=== PATIENT | female | born 1950 | race Hispanic/Latino ===

== ENCOUNTER → 2017-09-03 | Outpatient (CLI) | payer MEDICARE ==
[~2017-09-03] MED LIST: ALBU8.5H8 IH; ATOR40TA69 PO; BISO1TAB31 PO; ESOM20CA31 PO; LEVO75 PO; LOSA50TA37 PO; SERT100T PO
== END | disposition home or self-care (01) ==
LOC: RAH 12:56
PROVIDERS: ATTEND Physician Assistant
DX: Z12.31 Encounter for screening mammogram for malignant neoplasm of breast (principal)
CPT/HCPCS: 77067

== ENCOUNTER → 2017-09-27 | Outpatient (CLI) | payer MEDICARE | END | disposition home or self-care (01) | LOC: RAH 14:03 | PROVIDERS: ATTEND Physician Assistant | DX: M48.061 Spinal stenosis, lumbar region without neurogenic claudication (principal); M43.16 Spondylolisthesis, lumbar region; M51.36 Other intervertebral disc degeneration, lumbar region | CPT/HCPCS: 72110; 72148 ==

== ENCOUNTER → 2017-11-16 | Outpatient (CLI) | payer MEDICARE | END | disposition home or self-care (01) | LOC: LAB 15:12 | PROVIDERS: ATTEND Physician Assistant | DX: E03.9 Hypothyroidism, unspecified (principal) | CPT/HCPCS: 36415; 84443 ==

== ENCOUNTER → 2017-12-07 | Outpatient (CLI) | payer MEDICARE | END | disposition home or self-care (01) | LOC: RAH 12:54 | PROVIDERS: ATTEND Otolaryngology | DX: J32.2 Chronic ethmoidal sinusitis (principal) | CPT/HCPCS: 70486 ==

== ENCOUNTER → 2018-03-04 | Outpatient (CLI) | payer MEDICARE ==
[~2018-03-04] MED LIST changes: +LOSA50TA25 PO; -LOSA50TA37 PO
[2018-03-04 14:58] LABS: CREATININE 0.8 mg/dL (0.5-1.5)
== END | disposition home or self-care (01) ==
LOC: LAB 14:20
PROVIDERS: ATTEND Neurological Surgery
DX: M54.2 Cervicalgia (principal); R51 Headache
CPT/HCPCS: 36415; 82565; 84520

== ENCOUNTER 2018-03-14 08:50 | Emergency (ER) | payer MEDICARE | END 2018-03-14 10:31 | disposition home or self-care (01) | LOC: EDH 08:50 | DX: M43.6 Torticollis (principal); E78.5 Hyperlipidemia, unspecified; I10 Essential (primary) hypertension; Z88.8 Allergy status to other drugs, medicaments and biological substances; Z98.890 Other specified postprocedural states | CPT/HCPCS: 72040 ==

== ENCOUNTER 2018-04-08 12:54 | Emergency (ER) | payer MEDICARE ==
[2018-04-08 14:02] LABS: CREATININE 0.7 mg/dL (0.5-1.5); POTASSIUM 3.8 mmol/L (3.5-5.1)
[2018-04-08 14:07] LABS: ALBUMIN 3.6 g/dL (3.5-5.0); BILIRUBIN,TOTAL 0.7 mg/dL (0.2-1.0); TOTAL PROTEIN, SERUM 7.6 g/dL (6.0-8.3)
[2018-04-08 14:08] LABS: APPEARANCE,URINE Clear (CLEAR); BILIRUBIN,URINE Negative (NEGATIVE); COLOR,URINE Yellow (YELLOW); GLUCOSE, URINE (UA) Negative (NEGATIVE); KETONES,URINE Negative (NEGATIVE); LEUKOCYTE ESTERASE ,URINE Small (NEGATIVE); NITRATE,URINE Negative (NEGATIVE); OCCULT BLOOD,URINE Nonhemolyzed Trace (NEGATIVE); PROTEIN,URINE Negative (NEGATIVE)
[2018-04-08 14:17] LABS: AMPHET/METH SCREEN,URINE NEGATIVE (NEGATIVE); BARBITURATE SCREEN, URINE NEGATIVE (NEGATIVE); BENZODIAZEPINES SCREEN,URINE NEGATIVE (NEGATIVE); CANNABINOID SCREEN,URINE NEGATIVE (NEGATIVE); COCAINE SCREEN,URINE NEGATIVE (NEGATIVE); OPIATE SCREEN,URINE NEGATIVE (NEGATIVE); PHENCYCLIDINE SCREEN,URINE NEGATIVE (NEGATIVE)
[2018-04-08 14:31] LABS: RBC,URINE 0-1 /HPF (0-1)
[2018-04-08 14:32] LABS: BACTERIA,URINE Rare /HPF (None Seen)
[2018-04-08 14:33] LABS: SQUAMOUS EPITHELIAL CELL,UR 30-50 /HPF (0-2)
[2018-04-08 14:44] LABS: EOSINOPHILS % (AUTO) 1.6 % (0.0-8.0); HEMATOCRIT 38.4 % (36-48); LYMPHOCYTES % (AUTO) 33.3 % (21.0-51.0); MEAN CORPUSCULAR HEMOGLOBIN 30.2 pg (27.0-33.0); MEAN CORPUSCULAR HGB CONC 32.9 g/dL (32.0-36.0); MEAN CORPUSCULAR VOLUME 91.7 fL (79-99); MONOCYTES % (AUTO) 7.1 % (3.0-13.0); NUCLEATED RED BLOOD CELLS 0.1 % (0.0-0.19); PLATELET COUNT (AUTO) 217 K/uL (130-400); RED BLOOD CELL COUNT(AUTO) 4.19 MIL/uL (4.00-5.50); RED CELL DISTRIBUTION WIDTH 15.1 % (11.0-15.5); WHITE BLOOD COUNT (AUTO) 5.6 K/uL (4.8-10.8)
== END 2018-04-08 15:13 | disposition home or self-care (01) ==
LOC: EDH 12:54
DX: M54.5 Low back pain (principal); E78.5 Hyperlipidemia, unspecified; I10 Essential (primary) hypertension; J45.909 Unspecified asthma, uncomplicated; E07.9 Disorder of thyroid, unspecified; F32.9 Major depressive disorder, single episode, unspecified; Z98.890 Other specified postprocedural states; Z88.8 Allergy status to other drugs, medicaments and biological substances; Z91.011 Allergy to milk products
CPT/HCPCS: 36415; 72100; 80053; 80305; 81001; 82150; 82550; 83690; 84484; 85025; 93005

== ENCOUNTER → 2018-04-19 | Outpatient (CLI) | payer MEDICARE ==
[~2018-04-19] MED LIST changes: +GADODIAMIDE 10 MMOL/20 ML ML IV ONE
== END | disposition home or self-care (01) ==
LOC: RAH 15:55
PROVIDERS: ATTEND Neurological Surgery
DX: G31.9 Degenerative disease of nervous system, unspecified (principal)
CPT/HCPCS: 70551; A9579

== ENCOUNTER → 2018-07-25 | Outpatient (CLI) | payer MEDICARE ==
[~2018-07-25] MED LIST changes: -GADODIAMIDE 10 MMOL/20 ML ML IV ONE; -LOSA50TA25 PO; +LOSA50TA64 PO
== END | disposition home or self-care (01) ==
LOC: RAH 15:47
PROVIDERS: ATTEND Allergy & Immunology
DX: I51.7 Cardiomegaly (principal)
CPT/HCPCS: 71045

== ENCOUNTER 2018-07-27 22:02 | Emergency (ER) | payer MEDICARE ==
[2018-07-27] MEDS ORDERED: SODIUM CHLORIDE 0.9% 1000ML 1,000 ML IV ONE (22:45)
[2018-07-27] MEDS ORDERED: DEXAMETHASONE SOD PHOSPHATE 10MG/ML 1ML VIAL ONE (22:45)
[2018-07-27] MEDS ORDERED: CEFTRIAXONE SODIUM 1 GM ONE (22:45)
[2018-07-27] MEDS ORDERED: IPRATROPIUM/ALBUTEROL SULFATE 3 ML SOLUTION IH ONE (22:50)
[2018-07-27 23:06] LABS: RAPID GROUP A STREP NEGATIVE (NEGATIVE)
== END 2018-07-28 01:39 | disposition home or self-care (01) ==
LOC: EDH 22:02
DX: J20.9 Acute bronchitis, unspecified (principal); I10 Essential (primary) hypertension; J45.909 Unspecified asthma, uncomplicated; E78.5 Hyperlipidemia, unspecified; E07.9 Disorder of thyroid, unspecified; F32.9 Major depressive disorder, single episode, unspecified; Z98.890 Other specified postprocedural states; Z91.041 Radiographic dye allergy status; Z91.011 Allergy to milk products
CPT/HCPCS: 71046; 87804 ×2; 87880; 93005; 94640; 96374; 96375; 99284; A4218; J0696; J1100; J7030

== ENCOUNTER → 2018-09-19 | Outpatient (CLI) | payer MEDICARE | END | disposition home or self-care (01) | LOC: LAB 14:34 | PROVIDERS: ATTEND Physician Assistant | DX: E03.9 Hypothyroidism, unspecified (principal) | CPT/HCPCS: 36415; 84443 ==

== ENCOUNTER 2018-10-02 20:00 | Emergency (ER) | payer MEDICARE ==
[2018-10-02] MEDS ORDERED: DEXAMETHASONE SOD PHOSPHATE 10MG/ML 1ML VIAL ONE (20:16)
[2018-10-02] MEDS ORDERED: AZITHROMYCIN 250 MG TABLET PO ONE (22:49)
== END 2018-10-02 22:58 | disposition home or self-care (01) ==
LOC: EDH 20:00
DX: J45.21 Mild intermittent asthma with (acute) exacerbation (principal); R60.0 Localized edema; I10 Essential (primary) hypertension; E07.9 Disorder of thyroid, unspecified; Z91.041 Radiographic dye allergy status; Z91.011 Allergy to milk products; Z87.891 Personal history of nicotine dependence; Z98.890 Other specified postprocedural states
CPT/HCPCS: 71046; 87804 ×2; 93970; 96372; 99285; J1100

== ENCOUNTER → 2018-11-09 | Outpatient (CLI) | payer MEDICARE ==
[2018-11-09 14:20] LABS: CREATININE 0.7 mg/dL (0.5-1.5)
== END | disposition home or self-care (01) ==
LOC: LAB 13:23
PROVIDERS: ATTEND Neurological Surgery
DX: M47.812 Spondylosis without myelopathy or radiculopathy, cervical region (principal)
CPT/HCPCS: 36415; 82565; 84520

== ENCOUNTER → 2018-12-13 | Outpatient (CLI) | payer MEDICARE | END | disposition home or self-care (01) | LOC: RAH 10:32 | PROVIDERS: ATTEND Neurological Surgery | DX: M54.81 Occipital neuralgia (principal) | CPT/HCPCS: 70551 ==

== ENCOUNTER → 2019-01-25 | Outpatient (CLI) | payer MEDICARE | END | disposition home or self-care (01) | LOC: RAH 13:52 | PROVIDERS: ATTEND Orthopaedic Surgery | DX: M19.011 Primary osteoarthritis, right shoulder (principal); M25.711 Osteophyte, right shoulder | CPT/HCPCS: 73221 ==

== ENCOUNTER 2019-02-06 08:54 | Emergency (ER) | payer MEDICARE ==
[2019-02-06 09:19] LABS: BASOPHILS % (AUTO) 0.9 % (0.0-5.0); EOSINOPHILS % (AUTO) 2.2 % (0.0-8.0); HEMATOCRIT 37.1 % (36-48); LYMPHOCYTES % (AUTO) 36.8 % (21.0-51.0); MEAN CORPUSCULAR HEMOGLOBIN 30.2 pg (27.0-33.0); MEAN CORPUSCULAR HGB CONC 33.1 g/dL (32.0-36.0); MEAN CORPUSCULAR VOLUME 91.4 fL (79-99); MONOCYTES % (AUTO) 7.7 % (3.0-13.0); NEUTROPHILS % (AUTO) 52.4 % (40.0-77.0); PLATELET COUNT (AUTO) 209 K/uL (130-400); RED BLOOD CELL COUNT(AUTO) 4.06 MIL/uL (4.00-5.50); RED CELL DISTRIBUTION WIDTH 14.8 % (11.0-15.5); WHITE BLOOD COUNT (AUTO) 6.4 K/uL (4.8-10.8)
[2019-02-06 09:27] LABS: CREATININE 0.7 mg/dL (0.5-1.5); POTASSIUM 3.2 mmol/L (3.5-5.1)
[2019-02-06 09:32] LABS: ALBUMIN 3.6 g/dL (3.5-5.0); BILIRUBIN,TOTAL 0.6 mg/dL (0.2-1.0); TOTAL PROTEIN, SERUM 7.2 g/dL (6.0-8.3)
[2019-02-06 09:38] LABS: CREATINE KINASE, TOTAL 165 U/L (21-232); MYOGLOBIN 61 ng/mL (10-92); TROPONIN I < 0.04 ng/mL (0.00-0.06)
== END 2019-02-06 12:31 | disposition home or self-care (01) ==
LOC: EDH 08:54
DX: J20.9 Acute bronchitis, unspecified (principal); J81.0 Acute pulmonary edema; R07.89 Other chest pain; J45.909 Unspecified asthma, uncomplicated; I10 Essential (primary) hypertension; E78.5 Hyperlipidemia, unspecified; F32.9 Major depressive disorder, single episode, unspecified; E07.9 Disorder of thyroid, unspecified; Z91.041 Radiographic dye allergy status
CPT/HCPCS: 36415; 71045; 80053; 82550; 83874; 83880; 84484; 85025; 93005

== ENCOUNTER → 2019-03-17 | Outpatient (CLI) | payer MEDICARE ==
[~2019-03-17] MED LIST changes: +ALBU0.63 IH; +FLUT8AER2 IH; +ROSU20TA23 PO; +THYROXINE PO
[2019-03-17 13:53] LABS: BASOPHILS % (AUTO) 0.7 % (0.0-5.0); EOSINOPHILS % (AUTO) 1.6 % (0.0-8.0); HEMATOCRIT 37.6 % (36-48); LYMPHOCYTES % (AUTO) 28.1 % (21.0-51.0); MEAN CORPUSCULAR HEMOGLOBIN 31.3 pg (27.0-33.0); MEAN CORPUSCULAR HGB CONC 33.6 g/dL (32.0-36.0); MEAN CORPUSCULAR VOLUME 93.2 fL (79-99); MONOCYTES % (AUTO) 7.1 % (3.0-13.0); NEUTROPHILS % (AUTO) 62.5 % (40.0-77.0); PLATELET COUNT (AUTO) 232 K/uL (130-400); RED BLOOD CELL COUNT(AUTO) 4.04 MIL/uL (4.00-5.50); RED CELL DISTRIBUTION WIDTH 15.1 % (11.0-15.5); WHITE BLOOD COUNT (AUTO) 6.4 K/uL (4.8-10.8)
[2019-03-17 14:03] LABS: APPEARANCE,URINE Clear (CLEAR); BILIRUBIN,URINE Negative (NEGATIVE); COLOR,URINE Yellow (YELLOW); GLUCOSE, URINE (UA) Negative (NEGATIVE); KETONES,URINE Negative (NEGATIVE); LEUKOCYTE ESTERASE ,URINE Small (NEGATIVE); NITRATE,URINE Negative (NEGATIVE); OCCULT BLOOD,URINE Small (NEGATIVE); PROTEIN,URINE Negative (NEGATIVE)
[2019-03-17 14:14] LABS: ALBUMIN 3.5 g/dL (3.5-5.0); BILIRUBIN,TOTAL 0.8 mg/dL (0.2-1.0); CREATININE 0.7 mg/dL (0.5-1.5); POTASSIUM 3.2 mmol/L (3.5-5.1); T4 (THYROXINE) 10.6 ug/dL (4.7-13.3); THYROID STIMULATING HORMONE 7.05 uIU/mL (0.36-3.74); TOTAL PROTEIN, SERUM 7.2 g/dL (6.0-8.3); URIC ACID 3.5 mg/dL (2.6-7.2)
[2019-03-17 14:22] LABS: BACTERIA,URINE Rare /HPF (None Seen); RBC,URINE 0-1 /HPF (0-1); SQUAMOUS EPITHELIAL CELL,UR Rare /HPF (0-2); WBC,URINE 0-1 /HPF (0-1)
[2019-03-17 15:13] LABS: ERYTHROCYTE SEDIMENTATION RATE 40 MM/HR (0-30)
== END | disposition home or self-care (01) ==
LOC: LAB 12:25
PROVIDERS: ATTEND Internal Medicine
DX: E78.00 Pure hypercholesterolemia, unspecified (principal); I10 Essential (primary) hypertension; E03.9 Hypothyroidism, unspecified
CPT/HCPCS: 36415; 80053; 80061; 81001; 84436; 84443; 84479; 84550; 85025; 85651

== ENCOUNTER 2019-03-22 10:16 | Day surgery (SDC) | payer MEDICARE ==
[2019-03-20 12:51] VITALS: BP 146/68
--- NOTE | 2019-03-20 13:37 | NUR ---
REFUSAL OF BLOOD INFORMED DR. LORETA GAONA ASST OF PT BLOOD REFUSAL. SHE WILL INFORM DR. RACHEL.
[2019-03-20 13:43] LABS: INR 0.89 (0.85-1.15); PARTIAL THROMBOPLASTIN TIME 24.6 SEC (26.3-35.5); PROTHROMBIN TIME 9.4 SEC (9.6-11.6)
[2019-03-20 13:47] LABS: CREATININE 0.7 mg/dL (0.5-1.5); POTASSIUM 3.3 mmol/L (3.5-5.1)
--- NOTE | 2019-03-20 17:24 | NUR ---
PER DR. RACHEL, AWARE OF BLOOD REFUSAL, NO NEW ORDERS, OK TO PROCEED, INFORMED BY MARIA D, [facility] OFFICE.
--- NOTE | 2019-03-21 15:44 | NUR ---
NURSING: NOTIFIED RAMIRO CURRIE, FOR DR. RACHEL PT POTASSIUM IS LOW 3.2, NEW ORDER TO REDRAW K+ IN THE MORNING. REPORTED ABNORMAL CXR, NO NEW ORDERS OK TO PROCEED.
[~2019-03-22] VITALS: Ht 154.9 cm; Wt 91.6 kg
[2019-03-22] VITALS (8 sets, daily range): BP systolic 124–147; BP diastolic 73–96
[~2019-03-22 10:16] MED LIST changes: -LEVO75 PO; +METHYLPREDNISOLONE SOD SUCC 125MG/2ML VIAL IVP SCH; +SODIUM CHLORIDE 0.9% 500ML 500 ML IV SCH
--- NOTE | 2019-03-22 10:45 | NUR ---
PATIENT ARRIVED PATIENT ARRIVED TO DAY PATIENT ACCOMPANIED BY SPOUSE (OSCAR). PATIENT AAOX3, RESPIRATIONS UNLABORED, VITAL SIGNS STABLE,PATIENT DENIES ANY PAIN AT THIS TIME. PROCEDURE VERIFIED AND CONFIRMED WITH PATIENT. HOSPITAL ROUTINE EXPLAINED TO PATIENT AND SPOUSE, BOTH VERBALIZED UNDERSTANDING. ALL QUESTIONS/CONCERNS ADDRESSED. SIDE RAILS UP X2, BED IN LOWEST POSITION, CALL CARR IN REACH.
[2019-03-22] MEDS ORDERED: SODIUM CHLORIDE 0.9% 1000ML 1,000 ML IV ONE (13:51)
[2019-03-22] MEDS ORDERED: NICARDIPINE HCL 25 MG/10 ML ML IV ONE (14:43)
[2019-03-22] MEDS ORDERED: LIDOCAINE HCL 2% 20ML ONE (15:02)
[2019-03-22] MEDS ORDERED: HEPARIN SODIUM 1000UNIT/ML 10ML VIAL ONE (15:02)
[2019-03-22] MEDS ORDERED: IOHEXOL 350 MG/ML 100ML INFUS..BTL IV ONE (15:02)
[2019-03-22] MEDS ORDERED: IOHEXOL-350 50ML VIAL IV ONE ×2 (15:02→16:07)
[2019-03-22] MEDS ORDERED: NITROGLYCERIN 5 MG/ML 10 ML VIAL IV ONE (15:03)
--- NOTE | 2019-03-22 15:10 | NUR ---
PATIENT TRANSFERRED PATIENT TAKEN TO HEALTH MANAGER VIA BED BY DAVIS CLEMENT. FAMILY INSTRUCTED TO WAIT IN ROOM IN ORDER TO SPEAK WITH MD FOLLOWING PROCEDURE.
[2019-03-22] MEDS ORDERED: FENTANYL CITRATE PF 50 MCG/1 ML 2ML VIAL ONE (15:32)
[2019-03-22] MEDS ORDERED: MIDAZOLAM HCL 1 MG/ML 2ML VIAL ONE (15:32)
[2019-03-22] MEDS ORDERED: SODIUM CHLORIDE 0.9% 1000ML 1,000 ML IV SCH (16:21)
[2019-03-22] MEDS ORDERED: GLUCAGON 1MG KIT 1 MG ML IM PRN (16:30)
[2019-03-22] MEDS ORDERED: DEXTROSE 50%-WATER 50 ML DISP.SYRIN IV PRN (16:30)
--- NOTE | 2019-03-22 16:50 | NUR ---
PATIENT RETURNED PATIENT BROUGHT BACK FROM APPRENTICE PLANT ATTENDANT VIA BED BY DAVIS MCCLURE. PT AAOX3 ,RESPIRATIONS UNLABORED, VITAL SIGNS STABLE. PATIENT DENIES ANY PAIN AT THIS TIME. TR BAND IN PLACE TO RIGHT WRIST, NO HEMATOMA OR OOZING NOTED FROM THE SITE. RADIAL PULSES STRONG BILATERALLY. PATIENT INSTRUCTED TO KEEP RIGHT WRIST STRAIGHT AND AVOID USING RIGHT ARM/HAND, PT VERBALIZED UNDERSTANDING. SPOUSE AT BEDSIDE.
--- NOTE | 2019-03-22 17:10 | NUR ---
AIR REMOVED FROM TR BAND 2ML AIR REMOVED FROM TRBAND USING SYRINGE. PATIENT TOLERATED WELL, NO BLEEDING OR OOZING NOTED. RADIAL PULSES STRONG BILATERALLY.
--- NOTE | 2019-03-22 17:21 | NUR ---
DISCHARGE INSTRUCTIONS DISCHARGE INSTRUCTIONS PROVIDED TO PATIENT'S SPOUSE (OSCAR). INSTRUCTIONS ON RADIAL SITE CARE, ANGIOGRAM AFTER CARE, AND HAND WASHING PROVIDED AND EXPLAINED TO PATIENT'S SPOUSE. ALL QUESTIONS/CONCERNS ADDRESSED AND PATIENT'S SPOUSE VERBALIZED UNDERSTANDING OF INSTRUCTIONS.
--- NOTE | 2019-03-22 17:25 | NUR ---
TR BAND BLEEDING NOTED FROM RADIAL PUNCTURE SITE, 4ML OF AIR INSERTED INTO TRBAND. RADIAL SITE NO LONGER BLEEDING, HEMOSTASIS RESTORED. WILL CONTINUE TO MONITOR AND BEGIN REMOVING AIR IN 30MINS.
--- NOTE | 2019-03-22 17:55 | NUR ---
AIR REMOVED FROM TR BAND 2ML AIR REMOVED FROM TRBAND USING SYRINGE. PATIENT TOLERATED WELL, NO BLEEDING OR OOZING NOTED. RADIAL PULSES STRONG BILATERALLY. WILL CONTINUE TO MONITOR FOR BLEEDING AT SITE.
--- NOTE | 2019-03-22 20:00 | NUR ---
AIR REMOVED FROM TR BAND 2ML AIR REMOVED FROM TRBAND USING SYRINGE, NO MORE AIR LEFT IN TR BAND. TR BAND REMOVED AND PUNCTURE SITE COVERED WITH STERILE BANDAID. PATIENT TOLERATED WELL, NO BLEEDING OR OOZING NOTED. RADIAL PULSES STRONG BILATERALLY. WILL CONTINUE TO MONITOR FOR BLEEDING AT SITE.
--- NOTE | 2019-03-22 20:30 | NUR ---
RADIAL PUNCTURE SITE IS DRY, NO OOZING OR BLEEDING NOTED. BANDAID IS DRY AND INTACT.
--- NOTE | 2019-03-22 20:37 | NUR ---
patient discharged from facility via wheelchair by tom fuentes rn. patient assisted into private vehicle driven by spouse
== END 2019-03-22 20:37 | disposition home or self-care (01) ==
LOC: DAH 10:16
PROVIDERS: ATTEND Internal Medicine Cardiovascular Disease
DX: R94.39 Abnormal result of other cardiovascular function study (principal); I25.118 Atherosclerotic heart disease of native coronary artery with other forms of angina pectoris; I10 Essential (primary) hypertension; F41.9 Anxiety disorder, unspecified; M19.90 Unspecified osteoarthritis, unspecified site; E78.5 Hyperlipidemia, unspecified; Z88.3 Allergy status to other anti-infective agents; Z91.018 Allergy to other foods; Z96.653 Presence of artificial knee joint, bilateral; Z79.899 Other long term (current) drug therapy; Z98.890 Other specified postprocedural states; Z90.710 Acquired absence of both cervix and uterus; Z82.49 Family history of ischemic heart disease and other diseases of the circulatory system
CPT/HCPCS: 36415 ×2; 71045; 80048; 84132; 85610; 85730; 93005; 93454; 93567; A4215; A4216; A4221; A4222; A4223 ×3; A4606; C1769 ×3; C1894; J1644; J2250; J2930; J3010; J3490 ×3; J7030; Q9965; Q9967 ×3; 99156; 99157

== ENCOUNTER → 2019-03-27 | Outpatient (CLI) | payer MEDICARE ==
[~2019-03-27] MED LIST changes: -ATOR40TA69 PO; -ESOM20CA31 PO; -METHYLPREDNISOLONE SOD SUCC 125MG/2ML VIAL IVP SCH; -SODIUM CHLORIDE 0.9% 500ML 500 ML IV SCH
== END | disposition home or self-care (01) ==
LOC: RAH 11:50
PROVIDERS: ATTEND Internal Medicine
DX: Z12.31 Encounter for screening mammogram for malignant neoplasm of breast (principal)
CPT/HCPCS: 77067

== ENCOUNTER 2019-04-13 06:09 | Observation (INO) | payer MEDICARE ==
[2019-04-11 15:25] VITALS: BP 142/76
[2019-04-11 15:40] LABS: APPEARANCE,URINE Clear (CLEAR); BILIRUBIN,URINE Negative (NEGATIVE); COLOR,URINE Yellow (YELLOW); GLUCOSE, URINE (UA) Negative (NEGATIVE); KETONES,URINE Negative (NEGATIVE); LEUKOCYTE ESTERASE ,URINE Negative (NEGATIVE); NITRATE,URINE Negative (NEGATIVE); OCCULT BLOOD,URINE Negative (NEGATIVE); PROTEIN,URINE Negative (NEGATIVE)
[2019-04-11 15:58] LABS: EOSINOPHILS % (AUTO) 1.8 % (0.0-8.0); HEMATOCRIT 35.7 % (36-48); LYMPHOCYTES % (AUTO) 32.4 % (21.0-51.0); MEAN CORPUSCULAR HEMOGLOBIN 31.2 pg (27.0-33.0); MEAN CORPUSCULAR HGB CONC 33.3 g/dL (32.0-36.0); MEAN CORPUSCULAR VOLUME 93.9 fL (79-99); MONOCYTES % (AUTO) 7.4 % (3.0-13.0); NEUTROPHILS % (AUTO) 57.4 % (40.0-77.0); PLATELET COUNT (AUTO) 219 K/uL (130-400); RED CELL DISTRIBUTION WIDTH 14.7 % (11.0-15.5)
[2019-04-11 16:08] LABS: CREATININE 0.8 mg/dL (0.5-1.5); POTASSIUM 3.6 mmol/L (3.5-5.1)
[2019-04-11 16:11] LABS: INR 0.92 (0.85-1.15); PARTIAL THROMBOPLASTIN TIME 25.2 SEC (26.3-35.5); PROTHROMBIN TIME 9.7 SEC (9.6-11.6)
--- NOTE | 2019-04-11 16:21 | NUR ---
blood informed dr. yunier chase asst of pt refusing blood. she will inform dr. pleitez.
[2019-04-13] VITALS (9 sets, daily range): BP systolic 13–155; BP diastolic 49–81
[~2019-04-13] VITALS: Ht 154.9 cm; Wt 91.7 kg
[~2019-04-13 06:09] MED LIST changes: +METHYLPREDNISOLONE SOD SUCC 125MG/2ML VIAL IVP SCH; +SODIUM CHLORIDE 0.9% 1000ML 1,000 ML IV ONE
[2019-04-13] MEDS ORDERED: METHYLPREDNISOLONE SOD SUCC 125MG/2ML VIAL ONE (06:13)
[2019-04-13] MEDS ORDERED: SERT50TA PO (06:28)
[2019-04-13] MEDS ORDERED: NITR0.4T SL (06:28)
[2019-04-13] MEDS ORDERED: IOHEXOL 350 MG/ML 100ML INFUS..BTL IV ONE (11:04)
[2019-04-13] MEDS ORDERED: IOHEXOL-350 50ML VIAL IV ONE (11:04)
[2019-04-13] MEDS ORDERED: NITROGLYCERIN 5 MG/ML 10 ML VIAL IV ONE (11:04)
[2019-04-13] MEDS ORDERED: LIDOCAINE HCL 2% 20ML ONE ×2 (11:05→12:58)
--- NOTE | 2019-04-13 11:15 | NUR ---
procedure pt taken to manager cardiac cath for schedule procedure family at bedside
[2019-04-13] MEDS ORDERED: MIDAZOLAM HCL 1 MG/ML 2ML VIAL ONE (11:50)
[2019-04-13] MEDS ORDERED: FENTANYL CITRATE PF 50 MCG/1 ML 2ML VIAL ONE ×2 (11:50→13:01)
[2019-04-13] MEDS ORDERED: HEPARIN SODIUM 1000UNIT/ML 10ML VIAL ONE (12:13)
[2019-04-13] MEDS ORDERED: IOHEXOL-350 75 ML VIAL IV ONE (12:14)
--- NOTE | 2019-04-13 13:00 | NUR ---
PROCEDURE DR. RACHEL IN ROOM SPOKE TO PATIENTS SPOUSE ABOUT DIFFICULTY PERFORMING RIGHT / LHC, DR. RACHEL INFORMED HIM ABOUT HAVING ANOTHER PHYSICIAN ASSISTING WITH PROCEDURE ,THEY WILL TRY ANOTHER ROUTE, TRANS SEPTAL ACCESS. SPOUSE AGREED TO CONTINUE WITH PROCEDURE AND SIGN INFORMED CONSENT. RIKI CANNON AT BEDSIDE VALET SERVICE ATTENDANT NURSE WITNESS CONSENT
[2019-04-13] MEDS ORDERED: ONDANSETRON HCL 4 MG/2 ML VIAL ONE ×2 (14:37→15:26)
[2019-04-13] MEDS ORDERED: PROTAMINE SULFATE 10 MG/ML 25ML VIAL IV ONE (15:47)
[2019-04-13] MEDS ORDERED: FUROSEMIDE 10 MG/ML 2ML VIAL IV SCH (16:00)
[2019-04-13] MEDS ORDERED: ONDANSETRON HCL 4 MG/2 ML VIAL IVP PRN (19:30)
[2019-04-13] MEDS ORDERED: ACETAMINOPHEN 325 MG TAB PO PRN (19:30)
--- NOTE | 2019-04-13 21:00 | NUR ---
PT STABLE AT THIS TIME. AT BEDSIDE. BILATERAL HEART CATH COMPLETED. BED REST OVER AT 2029. PT STATES PAIN TO BACK. GIVEN TYLENOL PRN AT THIS TIME.
[2019-04-14 03:00] VITALS: BP 107/56
[2019-04-14 04:38] LABS: HEMATOCRIT 32.1 % (36-48); MEAN CORPUSCULAR HEMOGLOBIN 31.3 pg (27.0-33.0); MEAN CORPUSCULAR HGB CONC 33.6 g/dL (32.0-36.0); MEAN CORPUSCULAR VOLUME 93.1 fL (79-99); PLATELET COUNT (AUTO) 231 K/uL (130-400); RED BLOOD CELL COUNT(AUTO) 3.45 MIL/uL (4.00-5.50); RED CELL DISTRIBUTION WIDTH 15.1 % (11.0-15.5); WHITE BLOOD COUNT (AUTO) 8.5 K/uL (4.8-10.8)
[2019-04-14 04:58] LABS: ALBUMIN 3.1 g/dL (3.5-5.0); BILIRUBIN,TOTAL 0.3 mg/dL (0.2-1.0); POTASSIUM 3.6 mmol/L (3.5-5.1); TOTAL PROTEIN, SERUM 6.4 g/dL (6.0-8.3)
[2019-04-14 05:00] LABS: BAND NEUTROPHILS % (MANUAL) 11 % (0-2); LYMPHOCYTES % (MANUAL) 16 % (22-44); MAN.DIFF COMMENT-IMPRESSION MANUAL DIFFERENTIAL; MONOCYTES % (MANUAL) 3 % (2-9); PLATELET MORPHOLOGY COMMENT ADEQUATE; SEGMENTED NEUTROPHILS % 70 % (40-70)
--- NOTE | 2019-04-14 06:00 | NUR ---
BILATERAL GROIN ASSESSMENT- SOFT AND NON TENDER. NO DRAINAGE NOTED. PT STATES NO PAIN TO SITE. AMBULATORY.
[2019-04-14 08:00] VITALS: BP 100/57
[2019-04-14 11:00] VITALS: BP 94/60
[2019-04-14] MEDS ORDERED: POTASSIUM CHLORIDE 20 MEQ ERTAB PO SCH (12:00)
[2019-04-14] MEDS ORDERED: HYDROCHLOROTHIAZIDE 25 MG TABLET PO SCH (12:00)
--- NOTE | 2019-04-14 12:53 | NUR ---
HAD HEDRICK LETTER SIGNED AND FAXED TO [phone]
--- NOTE | 2019-04-14 13:15 | NUR ---
HL REMOVED, CATHETER INTACT. DISCHARGE INSTRUCTIONS/PRESCRIPTIONS GIVEN TO PT. AND SPOUSE AT BEDSIDE, VERBALIZED MUTUAL UNDERSTANDING.
--- NOTE | 2019-04-14 13:20 | NUR ---
BILATERAL GROIN LIGHT DRSG.'S REMOVED, PUNCTURE SITES LEFT OPEN TO AIR; WITHOUT ERYTHEMA, ECCHYMOSIS OR HEMATOMA NOTED. INSTRUCTED PT. ON CATH SITE CARE, VERBALIZED UNDERSTANDING.
[2019-04-15] MEDS ORDERED: HYDROCHLOROTHIAZIDE 25 MG TABLET PO SCH (09:00)
[2019-04-15] MEDS ORDERED: POTASSIUM CHLORIDE 20 MEQ ERTAB PO SCH (09:00)
== END 2019-04-14 13:26 | disposition home or self-care (01) ==
LOC: DAH 06:09 → DAHIP 06:10 → 2DH 17:04
PROVIDERS: ADMIT Internal Medicine Cardiovascular Disease; ATTEND Internal Medicine Cardiovascular Disease
DX: Q23.1 Congenital insufficiency of aortic valve (principal); Q21.1 Atrial septal defect; I10 Essential (primary) hypertension; M19.90 Unspecified osteoarthritis, unspecified site; E78.5 Hyperlipidemia, unspecified; Z96.653 Presence of artificial knee joint, bilateral; Z90.89 Acquired absence of other organs; Z90.49 Acquired absence of other specified parts of digestive tract; Z90.711 Acquired absence of uterus with remaining cervical stump; Z79.899 Other long term (current) drug therapy; Z91.048 Other nonmedicinal substance allergy status
CPT/HCPCS: 36415 ×2; 71045; 80048; 80053; 81003; 85025 ×2; 85610; 85730; 93005; 93453; 93462; 93662; 94660; 96374; A4215 ×2; A4216; A4221; A4222; A4223 ×3; A4606; A4663; C1760; C1769 ×5; C1893; C1894 ×6; G0378 ×21; J1644 ×3; J1940 ×2; J2250; J2405 ×2; J2720; J2930; J3010 ×2; J3490 ×3; J7030; Q9965; Q9967 ×3; 99156; 99157

== ENCOUNTER → 2019-07-14 | Outpatient (CLI) | payer MEDICARE ==
[~2019-07-14] MED LIST changes: -METHYLPREDNISOLONE SOD SUCC 125MG/2ML VIAL IVP SCH; +NITR0.4T SL; -SERT100T PO; +SERT50TA PO; -SODIUM CHLORIDE 0.9% 1000ML 1,000 ML IV ONE
[2019-07-14 13:51] LABS: BASOPHILS % (AUTO) 0.9 % (0.0-5.0); EOSINOPHILS % (AUTO) 1.3 % (0.0-8.0); LYMPHOCYTES % (AUTO) 37.9 % (21.0-51.0); MEAN CORPUSCULAR HEMOGLOBIN 29.9 pg (27.0-33.0); MEAN CORPUSCULAR HGB CONC 31.5 g/dL (32.0-36.0); MEAN CORPUSCULAR VOLUME 94.9 fL (79-99); MONOCYTES % (AUTO) 7.1 % (3.0-13.0); NEUTROPHILS % (AUTO) 52.5 % (40.0-77.0); PLATELET COUNT (AUTO) 261 K/uL (130-400); RED BLOOD CELL COUNT(AUTO) 4.11 MIL/uL (4.00-5.50); RED CELL DISTRIBUTION WIDTH 14.6 % (11.0-15.5); WHITE BLOOD COUNT (AUTO) 7.8 K/uL (4.8-10.8)
[2019-07-14 14:08] LABS: APPEARANCE,URINE Clear (CLEAR); BILIRUBIN,URINE Negative (NEGATIVE); COLOR,URINE Yellow (YELLOW); GLUCOSE, URINE (UA) Negative (NEGATIVE); KETONES,URINE Negative (NEGATIVE); LEUKOCYTE ESTERASE ,URINE Large (NEGATIVE); NITRATE,URINE Negative (NEGATIVE); OCCULT BLOOD,URINE Small (NEGATIVE); PH,URINE 5.5 (5.0-8.0); PROTEIN,URINE Negative (NEGATIVE); UROBILINOGEN,URINE 0.2 mg/dL (0.2-1.0)
[2019-07-14 14:15] LABS: ALBUMIN 3.8 g/dL (3.5-5.0); BILIRUBIN,TOTAL 0.5 mg/dL (0.2-1.0); CREATININE 0.8 mg/dL (0.5-1.5); POTASSIUM 3.8 mmol/L (3.5-5.1); THYROID STIMULATING HORMONE 16.19 uIU/mL (0.36-3.74); TOTAL PROTEIN, SERUM 7.8 g/dL (6.0-8.3)
[2019-07-14 14:32] LABS: BACTERIA,URINE Few /HPF (None Seen); SQUAMOUS EPITHELIAL CELL,UR Few /HPF (0-2)
[2019-07-14 15:14] LABS: ERYTHROCYTE SEDIMENTATION RATE 40 MM/HR (0-30)
== END | disposition home or self-care (01) ==
LOC: LAB 13:04
PROVIDERS: ATTEND Internal Medicine
DX: E03.9 Hypothyroidism, unspecified (principal); I10 Essential (primary) hypertension; E78.00 Pure hypercholesterolemia, unspecified; M15.9 Polyosteoarthritis, unspecified
CPT/HCPCS: 36415; 80053; 80061; 81001; 84439; 84443; 84479; 84550; 85025; 85651

== ENCOUNTER 2019-07-30 20:42 | Emergency (ER) | payer MEDICARE ==
[2019-07-30] MEDS ORDERED: DEXAMETHASONE SOD PHOSPHATE 10MG/ML 1ML VIAL ONE (21:06)
[2019-07-30] MEDS ORDERED: ASPIRIN 325 MG TABLET ONE (21:07)
[2019-07-30] MEDS ORDERED: IPRATROPIUM/ALBUTEROL SULFATE 3 ML SOLUTION IH ONE (21:12)
[2019-07-30 21:15] LABS: BASOPHILS % (AUTO) 0.8 % (0.0-5.0); EOSINOPHILS % (AUTO) 1.5 % (0.0-8.0); HEMATOCRIT 35.8 % (36-48); LYMPHOCYTES % (AUTO) 35.5 % (21.0-51.0); MEAN CORPUSCULAR HEMOGLOBIN 29.5 pg (27.0-33.0); MEAN CORPUSCULAR HGB CONC 31.6 g/dL (32.0-36.0); MEAN CORPUSCULAR VOLUME 93.5 fL (79-99); MONOCYTES % (AUTO) 8.6 % (3.0-13.0); NEUTROPHILS % (AUTO) 53.4 % (40.0-77.0); PLATELET COUNT (AUTO) 231 K/uL (130-400); RED BLOOD CELL COUNT(AUTO) 3.83 MIL/uL (4.00-5.50); RED CELL DISTRIBUTION WIDTH 14.7 % (11.0-15.5); WHITE BLOOD COUNT (AUTO) 6.2 K/uL (4.8-10.8)
[2019-07-30 21:31] LABS: INR 0.92 (0.85-1.15); PARTIAL THROMBOPLASTIN TIME 24.3 SEC (26.3-35.5); PROTHROMBIN TIME 9.7 SEC (9.6-11.6)
[2019-07-30 21:40] LABS: CREATININE 0.9 mg/dL (0.5-1.5); POTASSIUM 4.4 mmol/L (3.5-5.1)
[2019-07-30 21:42] LABS: ALBUMIN 3.4 g/dL (3.5-5.0); BILIRUBIN,TOTAL 0.4 mg/dL (0.2-1.0); TOTAL PROTEIN, SERUM 7.5 g/dL (6.0-8.3)
[2019-07-30 22:01] LABS: B-TYPE NATRIURETIC PEPTIDE 21 pg/mL (0-100)
== END 2019-07-30 22:54 | disposition home or self-care (01) ==
LOC: EDH 20:42
DX: J45.901 Unspecified asthma with (acute) exacerbation (principal); R07.89 Other chest pain; F32.9 Major depressive disorder, single episode, unspecified; E78.5 Hyperlipidemia, unspecified; I10 Essential (primary) hypertension; E07.9 Disorder of thyroid, unspecified; Z90.49 Acquired absence of other specified parts of digestive tract; Z90.710 Acquired absence of both cervix and uterus; Z90.89 Acquired absence of other organs; Z96.659 Presence of unspecified artificial knee joint; Z98.890 Other specified postprocedural states; Z91.041 Radiographic dye allergy status
CPT/HCPCS: 36415; 71045; 80053; 82550; 83880; 84484; 85025; 85610; 85730; 87804 ×2; 93005; 94640; 96374; 99285; J1100

== ENCOUNTER → 2019-08-11 | Outpatient (CLI) | payer MEDICARE | END | disposition home or self-care (01) | LOC: RAH 15:26 | PROVIDERS: ATTEND Internal Medicine | DX: E04.2 Nontoxic multinodular goiter (principal); E03.9 Hypothyroidism, unspecified | CPT/HCPCS: 76536 ==

== ENCOUNTER → 2020-01-18 | Outpatient (CLI) | payer MEDICARE | END | disposition home or self-care (01) | LOC: RAH 13:50 | PROVIDERS: ATTEND Neurological Surgery | DX: M53.2X2 Spinal instabilities, cervical region (principal); M54.2 Cervicalgia | CPT/HCPCS: 72052 ==

== ENCOUNTER → 2020-01-24 | Outpatient (CLI) | payer MEDICARE ==
--- NOTE | 2020-01-24 11:20 | NUR ---
U/S GUIDED BIOPSY OF LEFT BREAST LUMP ORDERED, NOT DONE U/S PERFORMED BY SEYMOUR HAWKINS. DR. VINSON REVIEWED PRIOR IMAGES AND CURRENT IMAGES AND DOES NOT SEE ANYTHING THAT NEEDS TO BE BIOPSIED AT THIS TIME. ORDERED FOR HER TO FOLLOWUP WITH DR. ANTONIO ROBERTSON AND REPEAT MAMMOGRAM AND U/S IN 6 MONTHS. PT VERBALIZED UNDERSTANDING.
[2020-01-24 11:52] LABS: INR 0.89 (0.85-1.15); PARTIAL THROMBOPLASTIN TIME 25.7 SEC (26.3-35.5); PROTHROMBIN TIME 9.7 SEC (9.6-11.6)
== END | disposition home or self-care (01) ==
LOC: RAH 09:57
PROVIDERS: ATTEND Internal Medicine
DX: N63.20 Unspecified lump in the left breast, unspecified quadrant (principal)
CPT/HCPCS: 36415; 76642; 85610; 85730

== ENCOUNTER → 2020-02-23 | Outpatient (CLI) | payer MEDICARE ==
[~2020-02-23] MED LIST changes: +HYDR12.54 PO; +LEVO112T7 PO; +LORA10TA7 PO; +MONT10TA26 PO; +ROSU20TA31 PO; +SPIR25TA6 PO
[2020-02-23 15:02] LABS: APPEARANCE,URINE SL CLOUDY (CLEAR); BILIRUBIN,URINE NEGATIVE (NEGATIVE); COLOR,URINE YELLOW (YELLOW); GLUCOSE, URINE (UA) NEGATIVE (NEGATIVE); KETONES,URINE NEGATIVE (NEGATIVE); LEUKOCYTE ESTERASE ,URINE TRACE (NEGATIVE); NITRATE,URINE NEGATIVE (NEGATIVE); OCCULT BLOOD,URINE TRACE-INTACT (NEGATIVE); PROTEIN,URINE NEGATIVE (NEGATIVE); UROBILINOGEN,URINE 0.2 mg/dL (0.2-1.0)
[2020-02-23 15:03] LABS: BASOPHILS % (AUTO) 0.7 % (0.0-5.0); EOSINOPHILS % (AUTO) 0.9 % (0.0-8.0); HEMATOCRIT 40.2 % (36-48); LYMPHOCYTES % (AUTO) 27.2 % (21.0-51.0); MEAN CORPUSCULAR HEMOGLOBIN 30.7 pg (27.0-33.0); MEAN CORPUSCULAR HGB CONC 31.8 g/dL (32.0-36.0); MEAN CORPUSCULAR VOLUME 96.4 fL (79-99); MONOCYTES % (AUTO) 6.5 % (3.0-13.0); NEUTROPHILS % (AUTO) 64.5 % (40.0-77.0); PLATELET COUNT (AUTO) 290 K/uL (130-400); RED BLOOD CELL COUNT(AUTO) 4.17 MIL/uL (4.00-5.50); RED CELL DISTRIBUTION WIDTH 13.7 % (11.0-15.5); WHITE BLOOD COUNT (AUTO) 8.1 K/uL (4.8-10.8)
[2020-02-23 15:22] LABS: BACTERIA,URINE Few /HPF (None Seen); MUCUS,URINE Few LPF (None Seen); SQUAMOUS EPITHELIAL CELL,UR Few /HPF (0-2)
[2020-02-23 15:43] LABS: ALBUMIN 3.4 g/dL (3.5-5.0); BILIRUBIN,TOTAL 0.7 mg/dL (0.2-1.0); CREATININE 0.9 mg/dL (0.5-1.5); POTASSIUM 3.5 mmol/L (3.5-5.1); T4 (THYROXINE) 13.7 ug/dL (4.7-13.3); THYROID STIMULATING HORMONE 0.28 uIU/mL (0.36-3.74); TOTAL PROTEIN, SERUM 7.6 g/dL (6.0-8.3); URIC ACID 5.2 mg/dL (2.6-7.2)
[2020-02-23 16:10] LABS: ERYTHROCYTE SEDIMENTATION RATE 55 MM/HR (0-30)
== END ==
LOC: LAB 13:51
PROVIDERS: ATTEND Internal Medicine
DX: E03.9 Hypothyroidism, unspecified (principal)
CPT/HCPCS: 36415; 80053; 80061; 81001; 84436; 84443; 84479; 84481; 84550; 85025; 85651

== ENCOUNTER 2020-02-24 20:20 | Inpatient (IN) | payer MEDICARE ==
[~2020-02-24] VITALS: Ht 160 cm; Wt 91.4 kg
[~2020-02-24 20:20] MED LIST changes: -HYDR12.54 PO; -LEVO112T7 PO; -LORA10TA7 PO; -MONT10TA26 PO; -ROSU20TA31 PO; -SPIR25TA6 PO
[2020-02-24] MEDS ORDERED: ONDANSETRON HCL 4 MG/2 ML VIAL ONE (21:24)
[2020-02-24] MEDS ORDERED: FAMOTIDINE/PF 20 MG/2 ML VIAL IV ONE (21:25)
[2020-02-24] MEDS ORDERED: PANTOPRAZOLE 40 MG/VIAL ONE (21:25)
[2020-02-24 21:29] LABS: BASOPHILS % (AUTO) 0.9 % (0.0-5.0); EOSINOPHILS % (AUTO) 0.7 % (0.0-8.0); HEMATOCRIT 39.3 % (36-48); LYMPHOCYTES % (AUTO) 33.1 % (21.0-51.0); MEAN CORPUSCULAR HEMOGLOBIN 30.8 pg (27.0-33.0); MEAN CORPUSCULAR HGB CONC 32.3 g/dL (32.0-36.0); MEAN CORPUSCULAR VOLUME 95.4 fL (79-99); MONOCYTES % (AUTO) 8.4 % (3.0-13.0); NEUTROPHILS % (AUTO) 56.7 % (40.0-77.0); PLATELET COUNT (AUTO) 273 K/uL (130-400); RED BLOOD CELL COUNT(AUTO) 4.12 MIL/uL (4.00-5.50); RED CELL DISTRIBUTION WIDTH 13.6 % (11.0-15.5); WHITE BLOOD COUNT (AUTO) 8.7 K/uL (4.8-10.8)
[2020-02-24 21:40] LABS: INR 0.92 (0.85-1.15); PARTIAL THROMBOPLASTIN TIME 19.6 SEC (26.3-35.5)
[2020-02-24 21:51] LABS: CREATINE KINASE, TOTAL 247 U/L (21-232); LIPASE 91 U/L (114-286)
[2020-02-24 21:52] LABS: APPEARANCE,URINE Clear (CLEAR); BILIRUBIN,URINE Negative (NEGATIVE); COLOR,URINE Dark Yellow (YELLOW); GLUCOSE, URINE (UA) Negative (NEGATIVE); KETONES,URINE Negative (NEGATIVE); LEUKOCYTE ESTERASE ,URINE Moderate (NEGATIVE); NITRATE,URINE Negative (NEGATIVE); OCCULT BLOOD,URINE Small (NEGATIVE); PROTEIN,URINE Negative (NEGATIVE)
[2020-02-24 22:00] LABS: BACTERIA,URINE Few /HPF (None Seen)
[2020-02-24 22:01] LABS: MUCUS,URINE Few LPF (None Seen); SQUAMOUS EPITHELIAL CELL,UR Few /HPF (0-2)
[2020-02-24] MEDS: SODIUM CHLORIDE 0.9% 1000ML 1,000 ML IV SCH (23:00)
[2020-02-24] MEDS ORDERED: ACETAMINOPHEN 325 MG TAB PO PRN (23:00)
[2020-02-24] MEDS ORDERED: NITROGLYCERIN 0.4 MG SL TAB SL PRN (23:00)
[2020-02-24] MEDS ORDERED: HYDRALAZINE HCL 20 MG/ML VIAL IV PRN (23:00)
[2020-02-24 23:03] LABS: CREATININE 0.9 mg/dL (0.5-1.5); POTASSIUM 3.3 mmol/L (3.5-5.1)
[2020-02-24 23:19] LABS: ALBUMIN 3.2 g/dL (3.5-5.0); BILIRUBIN,TOTAL 0.7 mg/dL (0.2-1.0); THYROID STIMULATING HORMONE 0.22 uIU/mL (0.36-3.74); TOTAL PROTEIN, SERUM 6.9 g/dL (6.0-8.3)
[2020-02-24] MEDS ORDERED: ACETAMINOPHEN 325 MG TAB ONE (23:35)
[2020-02-25 02:00] VITALS: BP 127/64
[2020-02-25 04:00] VITALS: BP 118/64
[2020-02-25 05:32] LABS: BASOPHILS % (AUTO) 0.7 % (0.0-5.0); EOSINOPHILS % (AUTO) 0.9 % (0.0-8.0); HEMATOCRIT 34.6 % (36-48); LYMPHOCYTES % (AUTO) 29.1 % (21.0-51.0); MEAN CORPUSCULAR HEMOGLOBIN 30.7 pg (27.0-33.0); MEAN CORPUSCULAR HGB CONC 32.1 g/dL (32.0-36.0); MEAN CORPUSCULAR VOLUME 95.8 fL (79-99); MONOCYTES % (AUTO) 7.9 % (3.0-13.0); PLATELET COUNT (AUTO) 245 K/uL (130-400); RED BLOOD CELL COUNT(AUTO) 3.61 MIL/uL (4.00-5.50); RED CELL DISTRIBUTION WIDTH 13.4 % (11.0-15.5); WHITE BLOOD COUNT (AUTO) 7.6 K/uL (4.8-10.8)
[2020-02-25 05:55] LABS: POTASSIUM 3.4 mmol/L (3.5-5.1)
[2020-02-25 08:00] VITALS: BP 111/66
[2020-02-25] MEDS ORDERED: POTASSIUM CHLORIDE 20 MEQ ERTAB PO SCH (08:30)
[2020-02-25] MEDS ORDERED: METOPROLOL TARTRATE 25 MG TAB PO SCH (09:00)
[2020-02-25] MEDS: ENOXAPARIN SODIUM 40 MG/0.4 ML SYRINGE SQ SCH (09:00)
[2020-02-25] MEDS ORDERED: ASPIRIN 325 MG TABLET PO SCH (09:00)
[2020-02-25] MEDS: FAMOTIDINE 20MG TAB 20 MG TAB PO SCH ×2 (11:01→20:43)
[2020-02-25] MEDS: ASPIRIN 81MG TAB.CHEW PO SCH (11:11)
--- NOTE | 2020-02-25 11:17 | NUR ---
PT REFUSED LOVENOX ORDERED BY . I EXPLAINED TO HER THAT IT IS A BLOOD THINNER AND IT IS USED TO PREVENT ANY BLOOD CLOTS FROM FORMING IN THE BODY. SHE STATED SHE WOULD THINK ABOUT IT AND REFUSED IT AT THIS TIME. I EXPLAINED THE RISKS OF NOT TAKING THE MEDICATION. PT VERBALIZED UNDERSTANDING. ALSO SPOKE TO HER OSCAR VIA TELEPHONE WITH PT IN ROOM. PLAN OF CARE WAS EXPLAINED TO HIM. NO FURTHER QUESTIONS AT THIS TIME FROM PT. PT LEFT IN BED, SIDE RAILS X2. WILL CONTINUE TO MONITOR PT.
[2020-02-25 11:57] VITALS: BP 119/55
[2020-02-25] MEDS ORDERED: LEVO112T7 PO (12:41)
[2020-02-25] MEDS ORDERED: ROSU20TA31 PO (12:41)
[2020-02-25] MEDS ORDERED: SPIR25TA6 PO (12:41)
[2020-02-25] MEDS ORDERED: HYDR12.54 PO (12:41)
[2020-02-25] MEDS ORDERED: MONT10TA26 PO (12:41)
[2020-02-25] MEDS ORDERED: LORA10TA7 PO (12:41)
[2020-02-25] MEDS ORDERED: NITROGLYCERIN 0.4 MG SL TAB SL PRN (14:00)
[2020-02-25 16:00] VITALS: BP 114/56
[2020-02-25] MEDS: LOSARTAN 50 MG TABLET PO SCH (17:23)
[2020-02-25] MEDS: ALBUTEROL SULFATE 0.083% 2.5 MG/3 ML INH IH SCH ×2 (18:35→23:12)
[2020-02-25] MEDS: BUDESONIDE 0.5 MG/2 ML INH IH SCH (18:35)
[2020-02-25 19:48] VITALS: BP 112/61
[2020-02-25] MEDS: ATORVASTATIN CALCIUM 40 MG TABLET PO SCH (20:43)
[2020-02-25] MEDS: MONTELUKAST SODIUM 10 MG TAB PO SCH (20:43)
[2020-02-25] MEDS: SODIUM CHLORIDE 0.9% 1000ML 1,000 ML IV SCH (22:37)
[2020-02-26] VITALS (7 sets, daily range): BP systolic 97–144; BP diastolic 53–78
[2020-02-26 06:07] LABS: CREATININE 0.9 mg/dL (0.5-1.5); MAGNESIUM 1.9 mg/dL (1.80-2.40); POTASSIUM 3.8 mmol/L (3.5-5.1)
[2020-02-26] MEDS: LEVOTHYROXINE 112 MCG TABLET PO SCH (06:30)
[2020-02-26] MEDS: ALBUTEROL SULFATE 0.083% 2.5 MG/3 ML INH IH SCH ×3 (06:49→18:34)
[2020-02-26] MEDS: BUDESONIDE 0.5 MG/2 ML INH IH SCH ×2 (06:50→19:01)
[2020-02-26] MEDS: ASPIRIN 81MG TAB.CHEW PO SCH (08:57)
[2020-02-26] MEDS: LOSARTAN 50 MG TABLET PO SCH (08:57)
[2020-02-26] MEDS: LORATADINE 10 MG TABLET PO SCH (08:58)
[2020-02-26] MEDS: ENOXAPARIN SODIUM 40 MG/0.4 ML SYRINGE SQ SCH (08:58)
[2020-02-26] MEDS: FAMOTIDINE 20MG TAB 20 MG TAB PO SCH ×2 (08:58→20:21)
--- NOTE | 2020-02-26 10:11 | NUR ---
DR CORTES SPOKE WITH PTS REGARDING PTS CURRENT STATUS
--- NOTE | 2020-02-26 11:55 | NUR ---
CM note met with patient and states resides at home with spouse independent with adls/ambulation uses nebulizer d/t asthma. spouse transports . no dc needs. dc plan is home. Addendum: 02/26/20 at 1202 by DENISE HORNE CM Amended: Links added.
[2020-02-26 13:47] LABS: INR 0.88 (0.85-1.15); PARTIAL THROMBOPLASTIN TIME 24.1 SEC (26.3-35.5); PROTHROMBIN TIME 9.6 SEC (9.6-11.6)
[2020-02-26] MEDS: SODIUM CHLORIDE 0.9% 1000ML 1,000 ML IV SCH (14:48)
[2020-02-26] MEDS: MONTELUKAST SODIUM 10 MG TAB PO SCH (20:21)
[2020-02-26] MEDS: ATORVASTATIN CALCIUM 40 MG TABLET PO SCH (20:21)
--- NOTE | 2020-02-26 20:25 | NUR ---
MEDS SHIFT ASSESSMENT DONE, PLEASE REFER TO CHART. DUE MEDS ADMINISTERED, TOLERATED WELL. PIV NOTED TO BE INFILTRATED, DISCONTINUED PIV WITH CATHETER INTACT. TRIED TO RE-INSERT PIV BUT FAILED. ASKED DAVIS ENNIS TO TRY RE-INSERTION. DR QUEEN CALLED WANTING TO DO TELE MEDICINE WITH PT BUT UNABLE TO CONNECT VIDEO CALL. JUST CALLED PT'S PHONE AND TALKED WITH PT ON THE PHONE. Addendum: 02/27/20 at 0049 by RADHA MEZA RN RN Amended: Links added.
--- NOTE | 2020-02-26 21:29 | NUR ---
EGD BATTERY ASSEMBLER PLASTIC SPOKE WITH DR QUEEN ON THE PHONE AND VERIFIED TIME OF EGD IN AM. STILL TALKING WITH PT. SPOKE WITH DJ ABOUT PROCEDURE AND FAXED ORDER.
--- NOTE | 2020-02-26 22:00 | NUR ---
PIV DAVIS ENNIS,TRIED TO RE-INSERT PIV BUT FAILED. ASKED DAVIS ADAM TO TRY INSERTION AND WAS ABLE TO RE-INSERT G20 TO RFA. CONTINUED IVF INFUSION. INSTRUCTED PT TO BE NPO POST MN FOR PROCEDURE, VERBALIZES UNDERSTANDING.
[2020-02-27] VITALS (16 sets, daily range): BP systolic 112–154; BP diastolic 56–92
[2020-02-27] MEDS: ALBUTEROL SULFATE 0.083% 2.5 MG/3 ML INH IH SCH ×4 (00:44→18:38)
--- NOTE | 2020-02-27 02:15 | NUR ---
ROUNDS PT RESTING WELL. DENIES ANY NEEDS AT THIS TIME. KEPT NPO. ENCOURAGED TO REST AND SLEEP. CALL LIGHT WITHIN REACH. WILL MONITOR PT.
[2020-02-27] MEDS: SODIUM CHLORIDE 0.9% 1000ML 1,000 ML IV SCH ×2 (04:22→11:00)
--- NOTE | 2020-02-27 06:00 | NUR ---
ROUNDS PT RESTING IN BED, NO DISTRESS NOTED. KEPT COMFORTABLE. KEPT NPO. FOR MORE CARE.
[2020-02-27] MEDS: BUDESONIDE 0.5 MG/2 ML INH IH SCH ×2 (06:12→18:25)
[2020-02-27] MEDS: LEVOTHYROXINE 112 MCG TABLET PO SCH (06:18)
[2020-02-27] MEDS: LOSARTAN 50 MG TABLET PO SCH (09:00)
[2020-02-27] MEDS: ASPIRIN 81MG TAB.CHEW PO SCH (09:00)
[2020-02-27] MEDS: FAMOTIDINE 20MG TAB 20 MG TAB PO SCH ×2 (09:00→20:06)
[2020-02-27] MEDS: LORATADINE 10 MG TABLET PO SCH (09:00)
--- NOTE | 2020-02-27 12:05 | NUR ---
TAKEN FOR EDG BY BED IN GOOD CONDITION WITH IV S/L IN PLACE. PT A/OX4
[2020-02-27] MEDS ORDERED: PROPOFOL 1000 MG/100 ML 100 ML IV ONE (12:53)
[2020-02-27] MEDS ORDERED: LIDOCAINE HCL-MPF 2% 5ML VIAL ONE (12:54)
--- NOTE | 2020-02-27 14:29 | NUR ---
PT RETURNED TO THE ROOM BY BED IN GOOD CONDITION, SPECIAL V/S CONTINUED, PT IS A/OX4 WITH NO CURRENT COMPLAINTS
[2020-02-27] MEDS ORDERED: LACTULOSE 20 GM/30 ML UDCUP PO SCH (16:30)
[2020-02-27] MEDS: MAGNESIUM CITRATE 296 ML SOLUTION PO SCH (16:36)
[2020-02-27] MEDS ORDERED: PEG 3350/NA SULF,BICARB,CL/KCL 4000 ML SOLN PO SCH (17:00)
[2020-02-27] MEDS ORDERED: BISACODYL 5 MG TABLET.DR PO SCH (18:00)
[2020-02-27] MEDS: ATORVASTATIN CALCIUM 40 MG TABLET PO SCH (20:06)
[2020-02-27] MEDS: MONTELUKAST SODIUM 10 MG TAB PO SCH (20:06)
--- NOTE | 2020-02-27 20:06 | NUR ---
MEDS SHIFT ASSESSMENT DONE, PLEASE REFER TO CHART. DUE MEDS ADMINISTERED, TOLERATED WELL. CONTINUED GI PREP FOR COLONOSCOPY IN AM. ENCOURAGED TO TAKE GOLYTELY UNTIL MIDNIGHT THEN NPO POST MN. CONTINUED CLEAR LIQUIDS UNTIL MN. WILL MONITOR PT. CALL LIGHT WITHIN REACH.
--- NOTE | 2020-02-27 21:00 | NUR ---
ENEMA TAP WATER ENEMA DONE UNTIL CLEAR. PT TOLERATED ENEMA WELL. ENCOURAGED TO CONTINUE GOLYTELY INTAKE.
[2020-02-28] VITALS (17 sets, daily range): BP systolic 95–146; BP diastolic 53–90
[2020-02-28] MEDS: ALBUTEROL SULFATE 0.083% 2.5 MG/3 ML INH IH SCH ×4 (00:45→23:27)
--- NOTE | 2020-02-28 02:00 | NUR ---
ROUNDS PT ALREADY HAVING CLEAR YELLOW STOOLS WITH SMALL SEDIMENTS. KEPT NPO FOR PROCEDURE. WILL CONTINUE TO MONITOR. CALL LIGHT WITHIN REACH.
--- NOTE | 2020-02-28 05:00 | NUR ---
ENEMA SECOND ENEMA DONE UNTIL OUTPUT IS CLEAR. PT TOLERATED ENEMA WELL. CONSENT FOR COLONOSCOPY SIGNED BY PT, WITNESSED BY FLOOR COVERING INSTALLER. PCP IN AND ASSISTED PT TO SHOWER.
[2020-02-28] MEDS: LEVOTHYROXINE 112 MCG TABLET PO SCH (05:56)
[2020-02-28] MEDS: SODIUM CHLORIDE 0.9% 1000ML 1,000 ML IV SCH (05:57)
[2020-02-28] MEDS: BUDESONIDE 0.5 MG/2 ML INH IH SCH ×2 (07:05→19:01)
[2020-02-28] MEDS: LOSARTAN 50 MG TABLET PO SCH (09:00)
[2020-02-28] MEDS: LORATADINE 10 MG TABLET PO SCH (09:00)
[2020-02-28] MEDS: ASPIRIN 81MG TAB.CHEW PO SCH (09:00)
[2020-02-28] MEDS: PANTOPRAZOLE SODIUM 40 MG TABLET.DR PO SCH (09:00)
[2020-02-28] MEDS: FAMOTIDINE 20MG TAB 20 MG TAB PO SCH ×2 (09:00→19:49)
[2020-02-28] MEDS ORDERED: MEPERIDINE-PF 50 MG/ML SYG ONE (11:05)
[2020-02-28] MEDS ORDERED: MIDAZOLAM HCL 1 MG/ML 2ML VIAL ONE (11:06)
--- NOTE | 2020-02-28 11:16 | NUR ---
0174 received telephone consent from Jesus [phone] for IM Letter. I faxed IM Letter to [phone] and placed in chart under consent tab.
--- NOTE | 2020-02-28 12:15 | NUR ---
PROCEDURE REPORT RECEIVED FROM DAVIS NGUYEN (GI) REGARDING PATIENT S/P COLONOSCOPY BY DR. QUEEN. MULTIPLE POLYPS REMOVED AND BIOPSIED. PATIENT TO START HIGH FIBER DIET AND FOLLOW UP IN OFFICE IN 1 WEEK.
[2020-02-28] MEDS: MAGNESIUM CITRATE 296 ML SOLUTION PO SCH (16:30)
[2020-02-28] MEDS: ATORVASTATIN CALCIUM 40 MG TABLET PO SCH (19:49)
[2020-02-28] MEDS: MONTELUKAST SODIUM 10 MG TAB PO SCH (19:49)
[2020-02-29 03:47] VITALS: BP 134/82
[2020-02-29 05:24] LABS: BASOPHILS % (AUTO) 0.7 % (0.0-5.0); EOSINOPHILS % (AUTO) 1.2 % (0.0-8.0); HEMATOCRIT 33.8 % (36-48); LYMPHOCYTES % (AUTO) 30.7 % (21.0-51.0); MEAN CORPUSCULAR HEMOGLOBIN 30.3 pg (27.0-33.0); MEAN CORPUSCULAR HGB CONC 31.4 g/dL (32.0-36.0); MEAN CORPUSCULAR VOLUME 96.6 fL (79-99); MONOCYTES % (AUTO) 5.9 % (3.0-13.0); NEUTROPHILS % (AUTO) 61.4 % (40.0-77.0); PLATELET COUNT (AUTO) 237 K/uL (130-400); RED CELL DISTRIBUTION WIDTH 13.9 % (11.0-15.5); WHITE BLOOD COUNT (AUTO) 6.8 K/uL (4.8-10.8)
[2020-02-29 05:46] LABS: BILIRUBIN,TOTAL 0.5 mg/dL (0.2-1.0); CREATININE 0.8 mg/dL (0.5-1.5); POTASSIUM 3.7 mmol/L (3.5-5.1); TOTAL PROTEIN, SERUM 6.5 g/dL (6.0-8.3)
[2020-02-29] MEDS: LEVOTHYROXINE 112 MCG TABLET PO SCH (06:11)
[2020-02-29] MEDS: SODIUM CHLORIDE 0.9% 1000ML 1,000 ML IV SCH ×2 (06:11→20:39)
[2020-02-29] MEDS: BUDESONIDE 0.5 MG/2 ML INH IH SCH ×2 (06:30→19:07)
[2020-02-29] MEDS: ALBUTEROL SULFATE 0.083% 2.5 MG/3 ML INH IH SCH ×4 (06:30→23:52)
[2020-02-29 07:58] VITALS: BP 144/72
--- NOTE | 2020-02-29 08:00 | NUR ---
PT AAO X 3 REVIEW PLAN OF CARE. DENIES ANY CHEST PAIN. OR STOMACH PAIN . . CALL LIGHT IN REACH..
[2020-02-29] MEDS: PANTOPRAZOLE SODIUM 40 MG TABLET.DR PO SCH (09:00)
[2020-02-29] MEDS: ASPIRIN 81MG TAB.CHEW PO SCH (09:04)
[2020-02-29] MEDS: FAMOTIDINE 20MG TAB 20 MG TAB PO SCH ×2 (09:04→21:22)
[2020-02-29] MEDS: LOSARTAN 50 MG TABLET PO SCH (09:04)
[2020-02-29] MEDS: LORATADINE 10 MG TABLET PO SCH (09:04)
[2020-02-29 11:47] VITALS: BP 124/74
[2020-02-29 16:00] VITALS: BP 126/77
[2020-02-29 20:00] VITALS: BP 129/71
--- NOTE | 2020-02-29 20:00 | NUR ---
assessment patient awake,alert,ox3, no sob, no c/o pain at this time, teach patient plan of care and expected outcome, patient verbalizes understanding via teach back, patient verbalizes understanding via teach back
[2020-02-29] MEDS: MAGNESIUM CITRATE 296 ML SOLUTION PO SCH (20:35)
[2020-02-29] MEDS: MONTELUKAST SODIUM 10 MG TAB PO SCH (21:22)
[2020-02-29] MEDS: ATORVASTATIN CALCIUM 40 MG TABLET PO SCH (21:22)
[2020-02-29] MEDS: ACETAMINOPHEN 325 MG TAB PO PRN (23:04)
[2020-03-01] VITALS (12 sets, daily range): BP systolic 112–159; BP diastolic 63–89
[2020-03-01 04:40] LABS: BASOPHILS % (AUTO) 1.1 % (0.0-5.0); EOSINOPHILS % (AUTO) 1.3 % (0.0-8.0); HEMATOCRIT 33.8 % (36-48); LYMPHOCYTES % (AUTO) 30.7 % (21.0-51.0); MEAN CORPUSCULAR HEMOGLOBIN 30.5 pg (27.0-33.0); MEAN CORPUSCULAR VOLUME 95.5 fL (79-99); MONOCYTES % (AUTO) 5.6 % (3.0-13.0); NEUTROPHILS % (AUTO) 61.2 % (40.0-77.0); PLATELET COUNT (AUTO) 237 K/uL (130-400); RED BLOOD CELL COUNT(AUTO) 3.54 MIL/uL (4.00-5.50); RED CELL DISTRIBUTION WIDTH 13.8 % (11.0-15.5); WHITE BLOOD COUNT (AUTO) 7.6 K/uL (4.8-10.8)
[2020-03-01 05:10] LABS: ALBUMIN 3.2 g/dL (3.5-5.0); BILIRUBIN,TOTAL 0.5 mg/dL (0.2-1.0); CREATININE 0.8 mg/dL (0.5-1.5); POTASSIUM 3.4 mmol/L (3.5-5.1); TOTAL PROTEIN, SERUM 6.6 g/dL (6.0-8.3)
[2020-03-01] MEDS: ALBUTEROL SULFATE 0.083% 2.5 MG/3 ML INH IH SCH ×5 (06:17→23:56)
[2020-03-01] MEDS: BUDESONIDE 0.5 MG/2 ML INH IH SCH ×2 (06:17→18:29)
[2020-03-01] MEDS: LEVOTHYROXINE 112 MCG TABLET PO SCH (06:30)
[2020-03-01] MEDS: ASPIRIN 81MG TAB.CHEW PO SCH (09:21)
[2020-03-01] MEDS: PANTOPRAZOLE SODIUM 40 MG TABLET.DR PO SCH (09:22)
[2020-03-01] MEDS: FAMOTIDINE 20MG TAB 20 MG TAB PO SCH ×2 (09:22→22:26)
[2020-03-01] MEDS: LOSARTAN 50 MG TABLET PO SCH (09:22)
[2020-03-01] MEDS: LORATADINE 10 MG TABLET PO SCH (09:22)
[2020-03-01] MEDS ORDERED: SODIUM BICARB 50MEQ 50ML VIAL ONE (10:13)
[2020-03-01] MEDS ORDERED: LIDOCAINE HCL 2% 20ML ONE (10:14)
[2020-03-01] MEDS ORDERED: HEPARIN SODIUM 1000UNIT/ML 10ML VIAL ONE (10:14)
[2020-03-01] MEDS ORDERED: MIDAZOLAM HCL 1 MG/ML 2ML VIAL ONE (10:14)
[2020-03-01] MEDS ORDERED: IODIXANOL 320 MG/ML 100 ML VIAL ONE ×3 (10:14→12:01)
[2020-03-01] MEDS ORDERED: FENTANYL CITRATE PF 50 MCG/1 ML 2ML VIAL ONE ×2 (10:14→12:25)
[2020-03-01] MEDS ORDERED: NITROGLYCERIN 2 MG/VIAL VIAL IV ONE (10:14)
[2020-03-01] MEDS ORDERED: DiphenhydrAMINE HCL 50 MG/ML VIAL IV SCH (10:15)
[2020-03-01] MEDS ORDERED: METHYLPREDNISOLONE SOD SUCC 125MG/2ML VIAL IVP SCH (10:15)
[2020-03-01] MEDS ORDERED: ONDANSETRON HCL 4 MG/2 ML VIAL ONE (12:32)
[2020-03-01] MEDS: ACETAMINOPHEN 325 MG TAB PO PRN (14:51)
[2020-03-01] MEDS: SODIUM CHLORIDE 0.9% 1000ML 1,000 ML IV SCH (18:34)
[2020-03-01] MEDS: MONTELUKAST SODIUM 10 MG TAB PO SCH (22:26)
[2020-03-01] MEDS: ATORVASTATIN CALCIUM 40 MG TABLET PO SCH (22:27)
[2020-03-02] MEDS: ACETAMINOPHEN 325 MG TAB PO PRN ×3 (00:01→14:15)
[2020-03-02 04:22] VITALS: BP 107/51
[2020-03-02 05:45] LABS: EOSINOPHILS % (AUTO) 2.2 % (0.0-8.0); HEMATOCRIT 30.4 % (36-48); MEAN CORPUSCULAR HEMOGLOBIN 31.4 pg (27.0-33.0); MEAN CORPUSCULAR HGB CONC 33.2 g/dL (32.0-36.0); MEAN CORPUSCULAR VOLUME 94.4 fL (79-99); MONOCYTES % (AUTO) 4.1 % (3.0-13.0); NEUTROPHILS % (AUTO) 84.4 % (40.0-77.0); PLATELET COUNT (AUTO) 238 K/uL (130-400); RED BLOOD CELL COUNT(AUTO) 3.22 MIL/uL (4.00-5.50); RED CELL DISTRIBUTION WIDTH 13.8 % (11.0-15.5); WHITE BLOOD COUNT (AUTO) 7.1 K/uL (4.8-10.8)
[2020-03-02] MEDS: ALBUTEROL SULFATE 0.083% 2.5 MG/3 ML INH IH SCH ×2 (06:07→18:00)
[2020-03-02] MEDS: BUDESONIDE 0.5 MG/2 ML INH IH SCH ×3 (06:20→18:28)
[2020-03-02 06:22] LABS: ALBUMIN 2.8 g/dL (3.5-5.0); BILIRUBIN,TOTAL 0.3 mg/dL (0.2-1.0); POTASSIUM 3.8 mmol/L (3.5-5.1); TOTAL PROTEIN, SERUM 6.2 g/dL (6.0-8.3)
[2020-03-02] MEDS: LEVOTHYROXINE 112 MCG TABLET PO SCH (06:41)
[2020-03-02 07:54] VITALS: BP 116/57
[2020-03-02] MEDS: ASPIRIN 81MG TAB.CHEW PO SCH (08:31)
[2020-03-02] MEDS: LOSARTAN 50 MG TABLET PO SCH (08:32)
[2020-03-02] MEDS: LORATADINE 10 MG TABLET PO SCH (08:32)
[2020-03-02] MEDS: FAMOTIDINE 20MG TAB 20 MG TAB PO SCH ×2 (08:32→20:11)
[2020-03-02] MEDS: PANTOPRAZOLE SODIUM 40 MG TABLET.DR PO SCH (08:33)
[2020-03-02] MEDS: ONDANSETRON HCL 4 MG/2 ML VIAL IV PRN ×2 (08:39→14:15)
[2020-03-02 12:03] VITALS: BP 121/65
[2020-03-02] MEDS: SODIUM CHLORIDE 0.9% 1000ML 1,000 ML IV SCH (14:14)
[2020-03-02] MEDS: MAGNESIUM CITRATE 296 ML SOLUTION PO SCH (15:29)
[2020-03-02 16:03] VITALS: BP 112/60
[2020-03-02 20:00] VITALS: BP 95/50
[2020-03-02] MEDS: ATORVASTATIN CALCIUM 40 MG TABLET PO SCH (20:10)
[2020-03-02] MEDS: MONTELUKAST SODIUM 10 MG TAB PO SCH (20:11)
[2020-03-02 23:45] VITALS: BP 102/51
[2020-03-03 04:00] VITALS: BP 107/63
[2020-03-03 06:04] LABS: HEMATOCRIT 30.7 % (36-48); MEAN CORPUSCULAR HEMOGLOBIN 30.7 pg (27.0-33.0); MEAN CORPUSCULAR HGB CONC 31.9 g/dL (32.0-36.0); MEAN CORPUSCULAR VOLUME 96.2 fL (79-99); RED BLOOD CELL COUNT(AUTO) 3.19 MIL/uL (4.00-5.50); RED CELL DISTRIBUTION WIDTH 14.1 % (11.0-15.5); WHITE BLOOD COUNT (AUTO) 7.8 K/uL (4.8-10.8)
[2020-03-03 06:19] LABS: CREATININE 0.8 mg/dL (0.5-1.5); POTASSIUM 3.8 mmol/L (3.5-5.1)
[2020-03-03] MEDS: LEVOTHYROXINE 112 MCG TABLET PO SCH (06:26)
[2020-03-03] MEDS: BUDESONIDE 0.5 MG/2 ML INH IH SCH ×2 (06:41→19:27)
[2020-03-03 08:03] VITALS: BP 120/66
[2020-03-03] MEDS: LORATADINE 10 MG TABLET PO SCH (09:00)
[2020-03-03] MEDS: ASPIRIN 81MG TAB.CHEW PO SCH (09:00)
[2020-03-03] MEDS: LOSARTAN 50 MG TABLET PO SCH (09:00)
[2020-03-03] MEDS: PANTOPRAZOLE SODIUM 40 MG TABLET.DR PO SCH (09:00)
[2020-03-03] MEDS: FAMOTIDINE 20MG TAB 20 MG TAB PO SCH ×2 (09:00→22:18)
[2020-03-03] MEDS: SODIUM CHLORIDE 0.9% 1000ML 1,000 ML IV SCH (11:00)
[2020-03-03 11:59] VITALS: BP 102/49
[2020-03-03] MEDS: MAGNESIUM CITRATE 296 ML SOLUTION PO SCH (15:52)
[2020-03-03 16:00] VITALS: BP 106/49
[2020-03-03] MEDS: ALBUTEROL SULFATE 0.083% 2.5 MG/3 ML INH IH SCH (18:08)
[2020-03-03 20:00] VITALS: BP 106/61
[2020-03-03] MEDS: ATORVASTATIN CALCIUM 40 MG TABLET PO SCH (22:18)
[2020-03-03] MEDS: MONTELUKAST SODIUM 10 MG TAB PO SCH (22:18)
[2020-03-03] MEDS: PREDNISONE 20 MG TABLET PO SCH (22:19)
[2020-03-04] VITALS (25 sets, daily range): BP systolic 117–145; BP diastolic 68–87
[2020-03-04] MEDS: LEVOTHYROXINE 112 MCG TABLET PO SCH (05:23)
[2020-03-04] MEDS: PREDNISONE 20 MG TABLET PO SCH ×2 (05:23→21:11)
[2020-03-04] MEDS: SODIUM CHLORIDE 0.9% 1000ML 1,000 ML IV SCH (05:23)
[2020-03-04 05:51] LABS: BASOPHILS % (AUTO) 0.2 % (0.0-5.0); HEMATOCRIT 34.3 % (36-48); LYMPHOCYTES % (AUTO) 9.3 % (21.0-51.0); MEAN CORPUSCULAR HEMOGLOBIN 30.7 pg (27.0-33.0); MEAN CORPUSCULAR HGB CONC 32.4 g/dL (32.0-36.0); MEAN CORPUSCULAR VOLUME 94.8 fL (79-99); MONOCYTES % (AUTO) 1.1 % (3.0-13.0); PLATELET COUNT (AUTO) 254 K/uL (130-400); RED BLOOD CELL COUNT(AUTO) 3.62 MIL/uL (4.00-5.50); RED CELL DISTRIBUTION WIDTH 13.7 % (11.0-15.5); WHITE BLOOD COUNT (AUTO) 8.2 K/uL (4.8-10.8)
[2020-03-04 06:03] LABS: INR 0.91 (0.85-1.15); PARTIAL THROMBOPLASTIN TIME 23.7 SEC (26.3-35.5); PROTHROMBIN TIME 9.9 SEC (9.6-11.6)
[2020-03-04 06:15] LABS: BILIRUBIN,TOTAL 0.4 mg/dL (0.2-1.0); CREATININE 0.9 mg/dL (0.5-1.5); POTASSIUM 3.9 mmol/L (3.5-5.1); TOTAL PROTEIN, SERUM 6.4 g/dL (6.0-8.3)
[2020-03-04] MEDS ORDERED: DiphenhydrAMINE HCL 50 MG/ML VIAL IVP PRN (08:00)
[2020-03-04] MEDS ORDERED: METHYLPREDNISOLONE SOD SUCC 125MG/2ML VIAL IVP PRN (08:00)
[2020-03-04] MEDS: LOSARTAN 50 MG TABLET PO SCH (09:00)
[2020-03-04] MEDS: ASPIRIN 81MG TAB.CHEW PO SCH (09:00)
[2020-03-04] MEDS: LORATADINE 10 MG TABLET PO SCH (09:00)
[2020-03-04] MEDS: PANTOPRAZOLE SODIUM 40 MG TABLET.DR PO SCH (09:00)
[2020-03-04] MEDS ORDERED: NITROGLYCERIN 2 MG/VIAL VIAL IV ONE (09:39)
[2020-03-04] MEDS ORDERED: LIDOCAINE HCL 2% 20ML ONE (09:39)
[2020-03-04] MEDS ORDERED: HEPARIN SODIUM 1000UNIT/ML 10ML VIAL ONE (09:39)
[2020-03-04] MEDS ORDERED: SODIUM BICARB 50MEQ 50ML VIAL ONE (09:39)
[2020-03-04] MEDS ORDERED: IODIXANOL 320 MG/ML 100 ML VIAL ONE ×2 (09:39→10:48)
[2020-03-04] MEDS ORDERED: PROPOFOL 1000 MG/100 ML 100 ML IV ONE (09:42)
[2020-03-04] MEDS ORDERED: NICARDIPINE HCL 25 MG/10 ML ML IV ONE (09:48)
[2020-03-04] MEDS ORDERED: SUCCINYLCHOLINE CHLORIDE 20 MG/ML 10 ML VIAL ONE (09:50)
[2020-03-04] MEDS ORDERED: KETAMINE 50MG/ML SYRINGE 50 MG/ML DISP.SYRIN IV ONE (09:50)
[2020-03-04] MEDS ORDERED: MIDAZOLAM HCL 1 MG/ML 2ML VIAL ONE (09:50)
[2020-03-04] MEDS ORDERED: EPTIFIBATIDE 2 MG/ML 10 ML VIAL IVP ONE (12:31)
[2020-03-04] MEDS ORDERED: EPTIFIBATIDE 75MG/100ML BOTTLE 100 ML IV ONE (12:34)
[2020-03-04] MEDS ORDERED: ALBUTEROL INHALER 90MCG/INH IH ONE (12:37)
--- NOTE | 2020-03-04 14:56 | NUR ---
pt drowsy follows simple commands. Will hold PO meds as patient appears to be to lethargic to swallow pills.
[2020-03-04] MEDS: CLOPIDOGREL BISULFATE 300 MG TAB PO SCH ×2 (16:16→18:34)
[2020-03-04] MEDS: MAGNESIUM CITRATE 296 ML SOLUTION PO SCH (16:30)
[2020-03-04] MEDS: BUDESONIDE 0.5 MG/2 ML INH IH SCH (19:17)
[2020-03-04] MEDS: ALBUTEROL SULFATE 0.083% 2.5 MG/3 ML INH IH SCH ×3 (19:18→19:22)
[2020-03-04] MEDS: FAMOTIDINE 20MG TAB 20 MG TAB PO SCH (21:05)
[2020-03-04] MEDS: MONTELUKAST SODIUM 10 MG TAB PO SCH (21:05)
[2020-03-04] MEDS: ATORVASTATIN CALCIUM 40 MG TABLET PO SCH (21:05)
[2020-03-04] MEDS: ONDANSETRON HCL 4 MG/2 ML VIAL IV PRN (21:11)
[2020-03-04] MEDS: ACETAMINOPHEN 325 MG TAB PO PRN (21:11)
[2020-03-05 00:25] VITALS: BP 123/76
[2020-03-05] MEDS: SODIUM CHLORIDE 0.9% 1000ML 1,000 ML IV SCH (03:00)
[2020-03-05 04:04] LABS: EOSINOPHILS % (AUTO) 2.2 % (0.0-8.0); HEMATOCRIT 27.4 % (36-48); LYMPHOCYTES % (AUTO) 8.5 % (21.0-51.0); MEAN CORPUSCULAR HEMOGLOBIN 31.1 pg (27.0-33.0); MEAN CORPUSCULAR HGB CONC 32.8 g/dL (32.0-36.0); MEAN CORPUSCULAR VOLUME 94.8 fL (79-99); MONOCYTES % (AUTO) 5.8 % (3.0-13.0); NEUTROPHILS % (AUTO) 83.1 % (40.0-77.0); PLATELET COUNT (AUTO) 220 K/uL (130-400); RED BLOOD CELL COUNT(AUTO) 2.89 MIL/uL (4.00-5.50); RED CELL DISTRIBUTION WIDTH 13.9 % (11.0-15.5); WHITE BLOOD COUNT (AUTO) 7.4 K/uL (4.8-10.8)
[2020-03-05 04:15] LABS: ALBUMIN 2.7 g/dL (3.5-5.0); BILIRUBIN,TOTAL 0.3 mg/dL (0.2-1.0); POTASSIUM 3.9 mmol/L (3.5-5.1); TOTAL PROTEIN, SERUM 5.8 g/dL (6.0-8.3)
[2020-03-05] MEDS: PREDNISONE 20 MG TABLET PO SCH (05:35)
[2020-03-05] MEDS: LEVOTHYROXINE 112 MCG TABLET PO SCH (05:35)
[2020-03-05] MEDS: ALBUTEROL SULFATE 0.083% 2.5 MG/3 ML INH IH SCH ×3 (06:18→11:03)
[2020-03-05] MEDS: BUDESONIDE 0.5 MG/2 ML INH IH SCH (06:18)
[2020-03-05 06:24] VITALS: BP 100/68
--- NOTE | 2020-03-05 08:00 | NUR ---
RT. ARM WARM WITH GOOD COLOR AND STRONG PULSE
--- NOTE | 2020-03-05 08:00 | NUR ---
AM SHIFT ASSESSMENT. SS/POST PLACEMENT OF CARDIAC STENTS 02/27. SL SWELLING NOTED TO RT ARM. DENIES ANY DISCOMFORT
[2020-03-05 08:25] VITALS: BP 124/57
[2020-03-05] MEDS: FAMOTIDINE 20MG TAB 20 MG TAB PO SCH (08:51)
[2020-03-05] MEDS: ASPIRIN 81MG TAB.CHEW PO SCH (08:51)
[2020-03-05] MEDS: LOSARTAN 50 MG TABLET PO SCH (08:52)
[2020-03-05] MEDS: LORATADINE 10 MG TABLET PO SCH (08:52)
[2020-03-05] MEDS: PANTOPRAZOLE SODIUM 40 MG TABLET.DR PO SCH (08:52)
[2020-03-05] MEDS ORDERED: CLOPIDOGREL BISULFATE 75 MG TAB PO SCH (09:00)
[2020-03-05 11:53] VITALS: BP 112/70
[2020-03-05] MEDS ORDERED: CLOP75TA14 PO (14:21)
[2020-03-05] MEDS ORDERED: ASPI-1005 PO (14:21)
[2020-03-05] MEDS ORDERED: PANT40TA PO (14:21)
--- NOTE | 2020-03-05 16:00 | NUR ---
DISCHARGE NOW USING TEACH BACK, WILL HAIR SPINNER MEDICATION AT [facility].TRANSMITTED ELECTRONICALLYBY DR. CORTES..SEEN BY DR. NAIDU EARLY TODAY AND SPOKE TO PT. RE MEDICATIONS. WILL FOLLOW UP WITH ELYSIA IN 1 WEEK.
== END 2020-03-05 15:59 | disposition home or self-care (01) | DRG 358 ==
LOC: EDH 20:20 → EDHIP 22:52 → OBSVTOIN 22:52 → 3DH 02-25 01:58 → 4AH 03-04 13:20
PROVIDERS: ADMIT Hospitalist; ATTEND Hospitalist
PROC: 0DB98ZX Excision of Duodenum, Via Natural or Artificial Opening Endoscopic, Diagnostic (ICD-10-PCS; 2020-02-27)
PROC: 0DB68ZX Excision of Stomach, Via Natural or Artificial Opening Endoscopic, Diagnostic (ICD-10-PCS; 2020-02-27)
PROC: 0DB38ZX Excision of Lower Esophagus, Via Natural or Artificial Opening Endoscopic, Diagnostic (ICD-10-PCS; 2020-02-27)
PROC: 0DBK8ZZ Excision of Ascending Colon, Via Natural or Artificial Opening Endoscopic (ICD-10-PCS; principal; 2020-02-28)
PROC: 0DBL8ZZ Excision of Transverse Colon, Via Natural or Artificial Opening Endoscopic (ICD-10-PCS; 2020-02-28)
PROC: 0DBP8ZZ Excision of Rectum, Via Natural or Artificial Opening Endoscopic (ICD-10-PCS; 2020-02-28)
PROC: 0DBH8ZZ Excision of Cecum, Via Natural or Artificial Opening Endoscopic (ICD-10-PCS; 2020-02-28)
PROC: B4151ZZ Fluoroscopy of Inferior Mesenteric Artery using Low Osmolar Contrast (ICD-10-PCS; 2020-03-01)
PROC: B4141ZZ Fluoroscopy of Superior Mesenteric Artery using Low Osmolar Contrast (ICD-10-PCS; 2020-03-01)
PROC: B4101ZZ Fluoroscopy of Abdominal Aorta using Low Osmolar Contrast (ICD-10-PCS; 2020-03-01)
PROC: 04713DZ Dilation of Celiac Artery with Intraluminal Device, Percutaneous Approach (ICD-10-PCS; 2020-03-04)
DX: I77.4 Celiac artery compression syndrome (principal); K27.9 Peptic ulcer, site unspecified, unspecified as acute or chronic, without hemorrhage or perforation; I35.0 Nonrheumatic aortic (valve) stenosis; I25.10 Atherosclerotic heart disease of native coronary artery without angina pectoris; E11.51 Type 2 diabetes mellitus with diabetic peripheral angiopathy without gangrene; K29.80 Duodenitis without bleeding; Z20.828 Contact with and (suspected) exposure to other viral communicable diseases; K21.9 Gastro-esophageal reflux disease without esophagitis; E66.01 Morbid (severe) obesity due to excess calories; E78.5 Hyperlipidemia, unspecified; Z68.35 Body mass index [BMI] 35.0-35.9, adult; F32.9 Major depressive disorder, single episode, unspecified; K63.5 Polyp of colon; K62.1 Rectal polyp; K64.0 First degree hemorrhoids; D50.9 Iron deficiency anemia, unspecified; K57.30 Diverticulosis of large intestine without perforation or abscess without bleeding; K21.0 Gastro-esophageal reflux disease with esophagitis; K44.9 Diaphragmatic hernia without obstruction or gangrene; K29.00 Acute gastritis without bleeding; D64.9 Anemia, unspecified; E03.9 Hypothyroidism, unspecified; E87.6 Hypokalemia; I10 Essential (primary) hypertension; J45.909 Unspecified asthma, uncomplicated; K29.70 Gastritis, unspecified, without bleeding; K64.8 Other hemorrhoids; M19.90 Unspecified osteoarthritis, unspecified site; Z96.653 Presence of artificial knee joint, bilateral; Z79.02 Long term (current) use of antithrombotics/antiplatelets; Z79.82 Long term (current) use of aspirin; Z91.041 Radiographic dye allergy status; Z87.891 Personal history of nicotine dependence; Z87.19 Personal history of other diseases of the digestive system; Z90.711 Acquired absence of uterus with remaining cervical stump; Z88.8 Allergy status to other drugs, medicaments and biological substances; Z80.8 Family history of malignant neoplasm of other organs or systems; Z80.52 Family history of malignant neoplasm of bladder; Z82.49 Family history of ischemic heart disease and other diseases of the circulatory system
CPT/HCPCS: 36245; 36415; 37236; 43239; 45380; 45385; 71045; 74176; 75625; 75726; 76700; 80048; 80053; 80061; 81001; 82550; 83605; 83690; 83735; 83880; 84436; 84439; 84443; 84479; 84481; 84484; 84550; 85025; 85027; 85610; 85651; 85730; 86677; 87088; 93005; 93975; 94640; 94664; 99152; 99153; 99156; 99157; A4606; C1725; C1760; C1769; C1887; C1894; C9113; G0378; J0330; J1200; J1327; J1644; J1650; J2175; J2250; J2405; J2704; J2930; J3010; J3490; J7030; Q9967; U0003

== ENCOUNTER → 2020-04-15 | Outpatient (CLI) | payer MEDICARE ==
[~2020-04-15] MED LIST changes: +ASPI-1005 PO; -BISO1TAB31 PO; +CLOP75TA14 PO; +HYDR12.54 PO; +LEVO112T7 PO; +LORA10TA7 PO; +MONT10TA26 PO; +OMEP40CA13 PO; +PANT40TA PO; -ROSU20TA23 PO; +ROSU20TA31 PO; -SERT50TA PO; +SUCR1ORA15 PO; -THYROXINE PO
[2020-04-15 12:44] LABS: CREATININE 0.8 mg/dL (0.5-1.5)
== END | disposition home or self-care (01) ==
LOC: LAB 11:55
PROVIDERS: ATTEND Neurological Surgery
DX: M54.12 Radiculopathy, cervical region (principal)
CPT/HCPCS: 36415; 82565; 84520

== ENCOUNTER → 2020-04-16 | Outpatient (CLI) | payer MEDICARE ==
[~2020-04-16] MED LIST changes: +GADODIAMIDE 10 MMOL/20 ML VIAL IV ONE
== END | disposition home or self-care (01) ==
LOC: RAH 13:04
PROVIDERS: ATTEND Neurological Surgery
DX: M50.221 Other cervical disc displacement at C4-C5 level (principal); M48.02 Spinal stenosis, cervical region
CPT/HCPCS: 72156; A9579

== ENCOUNTER → 2020-10-08 | Outpatient (CLI) | payer MEDICARE ==
[~2020-10-08] MED LIST changes: -ALBU0.63 IH; -CLOP75TA14 PO; -GADODIAMIDE 10 MMOL/20 ML VIAL IV ONE; -LORA10TA7 PO; -MONT10TA26 PO; -PANT40TA PO
== END | disposition home or self-care (01) ==
LOC: RAH 08:52
PROVIDERS: ATTEND Internal Medicine Gastroenterology
DX: R10.13 Epigastric pain (principal); K76.89 Other specified diseases of liver; Z90.49 Acquired absence of other specified parts of digestive tract
CPT/HCPCS: 76700

== ENCOUNTER → 2020-10-16 | Outpatient (CLI) | payer MEDICARE | END | disposition home or self-care (01) | LOC: RAH 14:00 | PROVIDERS: ATTEND Orthopaedic Surgery | DX: M89.222 Other disorders of bone development and growth, left humerus (principal); M77.8 Other enthesopathies, not elsewhere classified | CPT/HCPCS: 73200 ==

== ENCOUNTER → 2021-05-07 | Outpatient (CLI) | payer MEDICARE ==
[~2021-05-07] MED LIST changes: -OMEP40CA13 PO; +OMEP40CA21 PO
== END | disposition home or self-care (01) ==
LOC: RAH 05-05 14:24
PROVIDERS: ATTEND Internal Medicine
DX: D48.62 Neoplasm of uncertain behavior of left breast (principal); N60.02 Solitary cyst of left breast; R92.2 Inconclusive mammogram
CPT/HCPCS: 76641; 77066

== ENCOUNTER → 2021-08-18 | Outpatient (CLI) | payer MEDICARE ==
[~2021-08-18] MED LIST changes: +ACET1TAB25 PO; +ADVAIR IH; -ASPI-1005 PO; -FLUT8AER2 IH; +HYDR-4060 PO; +IPRA0.2S54 IH; -LEVO112T7 PO; +LEVO88CA4 PO; +LORA10TA7 PO; -LOSA50TA64 PO; -NITR0.4T SL; +NITR0.4T50 SL; -OMEP40CA21 PO; +REGADENOSON 0.4 MG/5 ML PF SYG IVP SCH; -ROSU20TA31 PO; +SIME80TA PO; -SUCR1ORA15 PO
== END | disposition home or self-care (01) ==
LOC: RAH 09:23
PROVIDERS: ATTEND Internal Medicine
DX: R07.9 Chest pain, unspecified (principal)
CPT/HCPCS: 78452; 93017; 96374; A9500 ×2; J2785

== ENCOUNTER → 2021-11-11 | Outpatient (CLI) | payer MEDICARE ==
[~2021-11-11] MED LIST changes: +ACET-2079 PO; -ACET1TAB25 PO; -REGADENOSON 0.4 MG/5 ML PF SYG IVP SCH
[2021-11-11 13:50] LABS: EOSINOPHILS % (AUTO) 1.7 % (0.0-8.0); HEMATOCRIT 37.9 % (36-48); LYMPHOCYTES % (AUTO) 35.7 % (21.0-51.0); MEAN CORPUSCULAR HGB CONC 32.2 g/dL (32.0-36.0); MEAN CORPUSCULAR VOLUME 96.4 fL (79-99); MONOCYTES % (AUTO) 6.8 % (3.0-13.0); NEUTROPHILS % (AUTO) 54.6 % (40.0-77.0); PLATELET COUNT (AUTO) 214 K/uL (130-400); RED BLOOD CELL COUNT(AUTO) 3.93 MIL/uL (4.00-5.50); RED CELL DISTRIBUTION WIDTH 13.8 % (11.0-15.5); WHITE BLOOD COUNT (AUTO) 5.9 K/uL (4.8-10.8)
[2021-11-11 14:08] LABS: ALBUMIN 3.7 g/dL (3.5-5.0); BILIRUBIN,TOTAL 0.6 mg/dL (0.2-1.0); CREATININE 0.8 mg/dL (0.5-1.5); POTASSIUM 4.2 mmol/L (3.5-5.1); TOTAL PROTEIN, SERUM 7.3 g/dL (6.0-8.3)
== END | disposition home or self-care (01) ==
LOC: LAB 12:58
PROVIDERS: ATTEND Internal Medicine
DX: M19.041 Primary osteoarthritis, right hand (principal); M19.042 Primary osteoarthritis, left hand
CPT/HCPCS: 36415; 80053; 80061; 85025

== ENCOUNTER → 2021-11-24 | Outpatient (CLI) | payer MEDICARE ==
[2021-11-24 14:10] LABS: ALBUMIN 3.7 g/dL (3.5-5.0); BILIRUBIN,TOTAL 0.5 mg/dL (0.2-1.0); CREATININE 0.8 mg/dL (0.5-1.5); TOTAL PROTEIN, SERUM 7.6 g/dL (6.0-8.3)
== END | disposition home or self-care (01) ==
LOC: LAB 13:13
PROVIDERS: ATTEND Internal Medicine Gastroenterology
DX: K76.0 Fatty (change of) liver, not elsewhere classified (principal)
CPT/HCPCS: 36415; 80053; 80061; 82172; 82247; 82977; 83010; 83883; 84460

== ENCOUNTER → 2021-11-26 | Outpatient (CLI) | payer MEDICARE ==
[~2021-11-26] MED LIST changes: +GADOTERATE MEGLUMINE 10 MMOL/20 ML VIAL IV ONE
== END | disposition home or self-care (01) ==
LOC: RAH 08:05
PROVIDERS: ATTEND Internal Medicine
DX: M48.061 Spinal stenosis, lumbar region without neurogenic claudication (principal); M51.27 Other intervertebral disc displacement, lumbosacral region; M48.07 Spinal stenosis, lumbosacral region
CPT/HCPCS: 72148